=== PATIENT | female | born 1975 ===

== ENCOUNTER 2020-10-13 08:42 | Outpatient (REF) | payer OTHER, SELFPAY ==
[2020-10-13 09:41] LABS: Hematocrit 40.8 % (37-47); Hemoglobin 13.3 g/dl (12.0-16.0); Mean Corpuscular HGB Conc 32.6 g/dl (31.0-35.0); Mean Corpuscular Hemoglobin 29.4 pg (27.0-33.0); Mean Corpuscular Volume 90.3 fL (80-98); Mean Platelet Volume 9.1 fL (9.4-12.3); Platelet Count 442 X10*3/uL (160-400); Red Blood Count 4.52 X10*6/uL (4.20-5.50); Red Cell Distribution Width 13.5 % (11.0-16.0); White Blood Count 8.4 X10*3/uL (4.8-10.8)
[2020-10-13 10:13] LABS: Alanine Aminotransferase 15 U/L (0-31); Albumin Level 4.7 g/dL (3.5-5.0); Alkaline Phosphatase 64 U/L (39-117); Anion Gap 13 (12-20); Aspartate Amino Transferase 16 U/L (5-31); Bilirubin Direct 0.3 mg/dL (0.0-0.5); Bilirubin Total 0.8 mg/dL (0.0-1.0); Blood Urea Nitrogen 11 mg/dL (9-16); Calcium 9.6 mg/dL (8.4-10.2); Carbon Dioxide 25 mmol/L (22-29); Chloride 106 mmol/L (96-108); Estimated Glomerular Filt Rate > 60; Glucose Random 96 mg/dL (60-115); Potassium 4.7 mmol/L (3.3-5.1); Sodium 139 mmol/L (135-145); Total Protein 7.5 g/dL (6.5-8.0)
[2020-10-13 10:31] LABS: HIV AB/AG Nonreactive (Nonreactive); HIV Num 1 0.05 S/CO (0.00-0.99)
[2020-10-13 10:32] LABS: Erythrocyte Sedimentation Rate 4 MM/HR (0-20)
[2020-10-13 10:34] LABS: Syphilis Screen Nonreactive (Nonreactive); Thyroid Stimulating Hormone 1.22 uIU/mL (0.32-4.0)
[2020-10-14 09:11] LABS: Lyme Abs Screen <0.90 index
[2020-10-14 22:21] LABS: Anti Nuclear Antibody Screen POSITIVE (NEGATIVE)
== END 2020-10-13 08:43 | disposition home or self-care (01) ==
LOC: HO.LAB 08:42
PROVIDERS: PCP Internal Medicine; Visit Provider Psychiatry & Neurology Neurology
DX: Z01.84 Encounter for antibody response examination (principal); Z11.4 Encounter for screening for human immunodeficiency virus [HIV]; G43.909 Migraine, unspecified, not intractable, without status migrainosus; R63.4 Abnormal weight loss
CPT/HCPCS: 36415; 80048; 80076; 84443; 85027; 85652; 86038; 86039; 86618; 86780; 87389

== ENCOUNTER 2020-10-29 08:28 | Outpatient (REF) | payer OTHER, SELFPAY ==
[2020-10-30 11:32] LABS: Complement C3 95 mg/dL (83-193)
[2020-10-30 13:37] LABS: Anti DNA DS Antibody 1 IU/mL
[2020-10-30 16:47] LABS: IgA 146 mg/dL (47-310); IgG 1093 mg/dL (600-1640); IgM 59 mg/dL (50-300)
[2020-10-30 23:12] LABS: Prot Elec - Albumin 4.5 g/dL (3.8-4.8); Prot Elec - Alpha1 0.3 g/dL (0.2-0.3); Prot Elec - Alpha2 0.6 g/dL (0.5-0.9); Prot Elec - Beta 1 0.5 g/dL (0.4-0.6); Prot Elec - Beta 2 0.3 g/dL (0.2-0.5); Prot Elec - Total Protein 7.3 g/dL (6.1-8.1)
[2020-11-05 05:16] LABS: Cryoglobulin, Qual Negative (Negative)
== END 2020-10-29 08:29 | disposition home or self-care (01) ==
LOC: HO.LAB 08:28
PROVIDERS: PCP Internal Medicine; Visit Provider Psychiatry & Neurology Neurology
DX: R76.8 Other specified abnormal immunological findings in serum (principal)
CPT/HCPCS: 36415; 82595; 82784; 84155; 84165; 86160; 86225; 86334

== ENCOUNTER → 2021-07-21 08:08 | Outpatient (BNVA) | payer SELFPAY | PROVIDERS: PCP Internal Medicine; Visit Provider Internal Medicine | DX: Z02.79 Encounter for issue of other medical certificate (principal) ==

== ENCOUNTER 2021-09-14 03:33 | Emergency (ER) | payer OTHER, SELFPAY ==
[2021-09-14 03:53] VITALS: BP 146/94; PULSE 71; RESP 20; TEMP 36.7; O2SAT 100; BMI 24.9
--- NOTE | 2021-09-14 04:34 | ED_ITS ---
HPI - Back Pain/Injury General Chief Complaint: Back Pain/Injury Stated Complaint: neck pain, lower back pain Time Seen by Provider: 09/14/21 03:43 Source: patient Mode of arrival: ambulatory Limitations: no limitations History of Present Illness HPI Narrative: Patient comes to emergency room complaining of chronic back pain, and right- sided neck pain and back pain for 3 days. 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 Patient states that she has trouble turning her head towards the right due to pain, muscle spasms on the right side of the neck. Patient denies fever chills. Related Data Previous Rx's Medication Instructions Recorded cyclobenzaprine 10 mg tablet 10 mg PO TID PRN #10 tab 09/14/21 Allergies Allergy/AdvReac Type Severity Reaction Status Date / Time No Known Allergies Allergy Verified 09/14/21 03:53 Review of Systems Review of Systems: Constitutional : No Weight loss, No Fever, No Chills, No Night Sweats, No Fatigue, No Malaise ENT/Mouth : No Hearing loss, No Ear Pain, No Nasal Congestion, No Sinus Pain, No Hoarseness, No sore throat, No Rhinorrhea, No Swallowing Difficulty Eyes: No Eye Pain, No Swelling, No Redness, No Foreign Body, No Discharge, No Vision Changes Cardiovascular : No Chest Pain, No SOB, No Dyspnea on Exertion, No Orthopnea, No Edema, No Palpitations Respiratory : No Cough, No Sputum, No Wheezing, No Smoke Exposure, No Dyspnea Gastrointestinal : No Nausea, No Vomiting, No Diarrhea, No Constipation, No abdominal Pain, No Hematochezia, No Melena Genitourinary : no irregular bleeding, No Dysuria, No Urinary Frequency, No Hematuria, No Urinary Incontinence, No Urgency, No Flank Pain, No Urinary Flow Changes, No Hesitancy Musculoskeletal : Complaining of right-sided neck pain, difficulty rotating her head towards the right Skin : No Skin Lesions, No rash Neuro : No Weakness, No Numbness, No Paresthesias, No Loss of Consciousness, No Dizziness, No Headache Psych : No Anxiety/Panic, No Depression, No SI/HI/AH/VH, No Social Issues, Heme/Lymph: No Bruising, No Bleeding,No Lymphadenopathy Endocrine : No Polyuria, No Polydipsia, No Temperature Intolerance PMFSH Social History Social History Advance Directives: No Advance Directives Information Provided: Yes Patient : No Physical Exam Vital Signs: Vital Signs: Last Vital Signs Temp 98.0 F 09/14/21 03:53 Pulse 71 09/14/21 03:53 Resp 20 09/14/21 03:53 BP 146/94 H 09/14/21 03:53 Pulse Ox 100 09/14/21 03:53 BMI result Body Mass Index 24.9 Const: Other: Appearance: Alert. Oriented X3. No acute distress. Eyes: Pupils equal, round and reactive to light. ENT: Pharynx normal. Neck: Palpable spasms over the trapezius muscle on the right side, patient is able to flex and extend the head with normal range of motion, no stiffness CVS: Normal heart rate and rhythm. Pulses normal. Normal S1 and S2 Respiratory: No respiratory distress. Breath sounds normal. No Wheezing. No rales Abdomen: Soft and nontender. No rigidity. No distention. : Denies urinary retention Skin: Skin warm and dry. Normal skin color. Normal skin turgor. Extremities: No lower extremity edema. No lower extremity edema. No Lacerations. No Rash Neuro: Oriented X 3. No motor deficit. No sensory deficit. Moving all extermities. No slurred speech. Course Course Course Narrative: Patient likely has musculoskeletal pain over the trapezius muscle. Patient has not had fever chills, meningitis not suspected at all. 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 If the muscle spasms are not approved, patient would benefit from physical therapy Discharge Plan Discharge Clinical Impression: Muscle spasm Patient Disposition: Home, Self-Care Instructions: Spasmodic Torticollis (ED), Muscle Spasm (ED) Additional Instructions: Please follow-up with your primary care physician tomorrow. If you have any worsening or new symptoms, please return to the emergency room or call 911 Prescriptions: New cyclobenzaprine 10 mg tablet 10 mg PO TID PRN (Reason: muscle spasm) Qty: 10 0RF Rx Instructions: Do not use this medication before driving or using machinery Stand Alone Forms: Work/School Release
[2021-09-14] MEDS: Ketorolac Tromethamine 30 MG/ML VIAL 60 MG IM (04:48)
== END 2021-09-14 05:00 | disposition home or self-care (01) ==
PROVIDERS: Emergency Provider Emergency Medicine; PCP Internal Medicine
DX: M62.838 Other muscle spasm (principal); M54.2 Cervicalgia
CPT/HCPCS: 96372; 99283; 99284; J1885

== ENCOUNTER → 2022-07-08 10:49 | Outpatient (BNVA) | payer SELFPAY | PROVIDERS: PCP Internal Medicine; Visit Provider Internal Medicine | DX: Z13.89 Encounter for screening for other disorder (principal) ==

== ENCOUNTER → 2022-07-22 12:49 | Outpatient (BNVA) | payer SELFPAY | PROVIDERS: PCP Internal Medicine; Visit Provider Internal Medicine | DX: Z02.79 Encounter for issue of other medical certificate (principal) ==

== ENCOUNTER 2022-10-23 00:35 | Emergency (ER) | payer OTHER, SELFPAY ==
--- NOTE | ~2022-10-23 | XR_ITS ---
EXAMINATION: XR CHEST CLINICAL INFORMATION: Chest tightness. COMPARISON: None available. TECHNIQUE: Frontal view of the chest was obtained. FINDINGS: No significant abnormality is noted involving the heart, lungs, mediastinum, bony thorax or soft tissues. XR/XR chest 1V IMPRESSION: Unremarkable examination.
[2022-10-23 00:36] VITALS: BP 136/83; PULSE 75; RESP 18; TEMP 36.4; O2SAT 98; BMI 27.4
--- NOTE | 2022-10-23 00:39 | ECG_ITS ---
Test Reason : CHEST TIGHTNESS Blood Pressure : / mmHG Vent. Rate : 071 BPM Atrial Rate : 071 BPM P-R Int : 132 ms QRS Dur : 084 ms QT Int : 412 ms P-R-T Axes : 059 066 041 degrees QTc Int : 447 ms Normal sinus rhythm Normal ECG No previous ECGs available Referred By: Generic ED Physician Electronically Signed By:Luisito Rabago
[2022-10-23 01:07] LABS: MANUAL DIFF FLAG NO
[2022-10-23 01:13] LABS: Basophils Absolute Auto 0.1 X10*3/uL (0.0-0.2); Basophils Percent Auto 0.9 % (0-2); Eosinophils Absolute Auto 0.7 X10*3/uL (0.0-0.4); Hematocrit 38.1 % (37.0-47.0); Hemoglobin 12.6 g/dl (12.0-16.0); Imm Gran Abs Auto 0.05 X10*3/uL (0.00-0.03); Imm Gran Pct Auto 0.4 % (0.0-0.4); Lymphocytes Absolute Auto 2.7 X10*3/uL (1.2-4.9); Lymphocytes Percent Auto 21.9 % (20-40); Mean Corpuscular HGB Conc 33.1 g/dl (31.0-35.0); Mean Corpuscular Hemoglobin 29.5 pg (27.0-33.0); Mean Corpuscular Volume 89.2 fL (80.0-98.0); Mean Platelet Volume 9.1 fL (9.4-12.3); Monocytes Absolute Auto 0.9 X10*3/uL (0.1-1.2); Monocytes Percent Auto 7.1 % (2-11); Neutrophils Absolute Auto 7.8 x10*3/uL (2.0-8.3); Neutrophils Percent Auto 63.7 % (45-73); Platelet Count 437 X10*3/uL (160-400); Red Blood Count 4.27 X10*6/uL (4.20-5.50); Red Cell Distribution Width 13.2 % (11.0-16.0); White Blood Count 12.2 X10*3/uL (4.8-10.8)
[2022-10-23 01:25] LABS: Anion Gap 12 (12-20); Blood Urea Nitrogen 16 mg/dL (9-16); Calcium 8.9 mg/dL (8.4-10.2); Carbon Dioxide 22 mmol/L (22-29); Chloride 110 mmol/L (96-108); Creatinine Clr Calc Pharmacy 96.3; Estimated Glomerular Filt Rate > 60; Glucose Random 115 mg/dL (60-115); Potassium 4.2 mmol/L (3.3-5.1); Sodium 140 mmol/L (135-145)
[2022-10-23 01:33] LABS: Troponin-I High Sensitivity < 2.7 ng/L (<3.5-17.0)
[2022-10-23 02:47] VITALS: BP 128/79; PULSE 71; RESP 20; TEMP 36.5; O2SAT 96
--- NOTE | 2022-10-23 03:23 | ED_ITS ---
HPI - Chest Pain General Chief Complaint: Chest Pain Stated Complaint: Chest pain/left side arm hurts Time Seen by Provider: 10/23/22 01:34 Source: patient Mode of arrival: ambulatory History of Present Illness HPI narrative: 47-year-old female who 2 weeks ago had COVID-19 and felt like she was getting better and then recently developed worsening nasal congestion with cough, she denies any history of asthma and reports that she began to experience some difficulty with breathing earlier this evening became anxious and then began experiencing pain into her left shoulder. She otherwise denies any recent fever, chills, GI or symptoms. Related Data Previous Rx's Medication Instructions Recorded cyclobenzaprine 10 mg tablet 10 mg PO TID PRN muscle spasm #10 09/14/21 tabs azithromycin 250 mg tablet 250 mg PO DAILY 4 days #4 tabs 10/23/22 Allergies Allergy/AdvReac Type Severity Reaction Status Date / Time No Known Allergies Allergy Verified 09/14/21 03:53 Review of Systems Review of Systems: Pertinent positives and negatives as stated in HPI PMFSH Past Medical History Source: nursing notes reviewed Social History Social History Alcohol intake: never Smoked in Last 30 Days: No Use of substances other than those prescribed or required for medical reasons: No Advance Directives: No Advance Directives Information Provided: Yes Physical Exam Vital Signs: Vital Signs: Last Vital Signs Temp 97.7 F 10/23/22 02:47 Pulse 71 10/23/22 02:47 Resp 20 10/23/22 02:47 BP 128/79 10/23/22 02:47 Pulse Ox 96 10/23/22 02:47 O2 Del Method Room Air 10/23/22 02:47 BMI result Body Mass Index 27.4 VITAL SIGNS: Reviewed. GENERAL: Well developed, well nourished, in no acute distress. HEAD: Normocephalic/atraumatic EYES: PERRLA, EOMI EARS: Ext canals without abnormality, TMs non-bulging and non-erythematous NOSE: Nasal congestion OROPHARYNX: no oral lesions noted, posterior pharynx clear and non-erythematous without noted tonsillar enlargement/erythema/exudates NECK: Supple, no adenopathy LUNGS: Normal breath sounds. No adventitious sounds or accessory muscle use. SpO2<96> CARDIOVASCULAR: Regular rate and rhythm without noted murmurs ABDOMEN: Soft, non-tender, non-distended with bowel sounds. MUSCULOSKELETAL: No tenderness, deformities, or effusions noted on gross inspection. EXTREMITIES: No cyanosis, clubbing or edema. SKIN: Inspection of the skin reveals no rashes NEUROLOGIC: Alert and oriented x 4. Strength and sensation to light touch were grossly intact x 4. Medical Decision Making Medical Decision Making MDM Narrative: 47-year-old female with atypical chest pain and recent viral illness that may be contributing to her underlying discomfort in addition to a component of anxiety. Reviewed all investigations and have noted a reactive leukocytosis in addition to an eosinophilia, patient is not febrile/tachypneic/hypoxic and my review and interpretation of the chest x-ray is in agreement with radiology's impression. Given patient's symptoms and despite she has no fever, will treat with a course of azithromycin and instructed to follow-up with her primary care doctor. Differential Diagnosis Please see the discussion above Lab Data Please see the discussion above 10/23/22 01:00 10/23/22 01:00 Labs: Lab Results 10/23/22 10/23/22 10/23/22 Range/Units 01:00 01:00 01:00 WBC 12.2 H (4.8-10.8) X10*3/uL RBC 4.27 (4.20-5.50) X10*6/uL Hgb 12.6 (12.0-16.0) g/dl Hct 38.1 (37.0-47.0) % MCV 89.2 (80.0-98.0) fL MCH 29.5 (27.0-33.0) pg MCHC 33.1 (31.0-35.0) g/dl RDW 13.2 (11.0-16.0) % Plt Count 437 H (160-400) X10*3/uL MPV 9.1 L (9.4-12.3) fL Immature Gran % (Auto) 0.4 (0.0-0.4) % Neut % (Auto) 63.7 (45-73) % Lymph % (Auto) 21.9 (20-40) % [place] % (Auto) 7.1 (2-11) % Eos % (Auto) 6.0 H (0-4) % Baso % (Auto) 0.9 (0-2) % Lymph # (Auto) 2.7 (1.2-4.9) X10*3/uL [place] # (Auto) 0.9 (0.1-1.2) X10*3/uL Eos # (Auto) 0.7 H (0.0-0.4) X10*3/uL Baso # (Auto) 0.1 (0.0-0.2) X10*3/uL Abs Immat Gran (auto) 0.05 H (0.00-0.03) X10*3/uL Absolute Neuts (auto) 7.8 (2.0-8.3) x10*3/uL Absolute Nucleated RBC 0.000 (0.0-0.012) X10*3/uL Nucleated RBC % (auto) 0.0 (0.0-0.2) /100WBC Sodium 140 (135-145) mmol/L Potassium 4.2 (3.3-5.1) mmol/L Chloride 110 H (96-108) mmol/L Carbon Dioxide 22 (22-29) mmol/L Anion Gap 12 (12-20) BUN 16 (9-16) mg/dL Creatinine 0.72 (0.5-1.4) mg/dL Estim Creat Clear Calc 96.3 Estimated GFR > 60 Random Glucose 115 (60-115) mg/dL Calcium 8.9 D (8.4-10.2) mg/dL Troponin I High Sens < 2.7 (<3.5-17.0) ng/L Independent Interpretation I performed an independent interpretation of an: EKG Interpretation: Normal sinus rhythm, HR-71, no STEMI, FL/QRS/QTC is within normal limits. Radiology Impression Radiologist Impression: My interpretation is in agreement with radiology's impression of the imaging studies. External Record Review External record reviewed: Prior outpatient labs Discharge Plan Discharge Clinical Impression: Atypical chest pain, Pneumonia Patient Disposition: Home, Self-Care Instructions: Pneumonia (ED) Additional Instructions: 1. Complete the entire course of antibiotics as prescribed. 2. Recommend that she use [id number] Tylenol/ibuprofen as needed for additional pain control. Prescriptions: New azithromycin 250 mg tablet 250 mg PO DAILY 4 Days Qty: 4 0RF Rx Instructions: start on day 2 of therapy No Action cyclobenzaprine 10 mg tablet 10 mg PO TID PRN (Reason: muscle spasm) Qty: 10 0RF Rx Instructions: Do not use this medication before driving or using machinery Referrals: Eliza Jolly MD [Primary Care Provider] -
[2022-10-23] MEDS: Azithromycin 500 MG TABLET PO (03:55)
[2022-10-23] MEDS: Ibuprofen 400 MG TABLET PO (03:55)
[2022-10-23] MEDS: Acetaminophen 325 MG TABLET 975 MG PO (03:55)
[2022-10-23 04:18] LABS: COVID-19 Test Positive (Negative); IDNOW Serial# 08D9AD1C; IDNOW Serial# BCCEAD1C; Influenza A Negative (Negative); Influenza B2 Negative (Negative)
== END 2022-10-23 04:00 | disposition home or self-care (01) ==
PROVIDERS: Emergency Provider Student in an Organized Health Care Education/Training Program; PCP Internal Medicine
DX: U07.1 COVID-19 (principal); J12.82 Pneumonia due to coronavirus disease 2019; R07.89 Other chest pain
CPT/HCPCS: 36415; 71045; 80048; 84484; 85025; 87502; 87635; 93005; 99283; 99285

== ENCOUNTER → 2023-07-15 10:14 | Outpatient (BNVA) | payer SELFPAY | PROVIDERS: PCP Internal Medicine; Visit Provider Physician Assistant | DX: Z02.79 Encounter for issue of other medical certificate (principal) ==

== ENCOUNTER 2023-08-25 11:29 | Emergency (ER) | payer OTHER, SELFPAY ==
[2023-08-25 11:40] VITALS: BP 136/66; PULSE 93; RESP 18; TEMP 36.1; O2SAT 96; BMI 30.8
--- NOTE | 2023-08-25 11:40 | ED_ITS ---
HPI - Animal Bite General Chief Complaint: Animal Bite Stated Complaint: bit by a stray cat 08/24 Time Seen by Provider: 08/25/23 12:17 Source: patient Mode of arrival: ambulatory Limitations: no limitations History of Present Illness HPI narrative: 48-year-old female presents for evaluation of cat bite to right hand by a random strike cat which her daughter brought home. She reports she has multiple bites and scratches to her right hand. Unknown rabies status for CT. Up-to-date on tetanus shot. Denies fevers, chills, chest pain, shortness of breath, numbness, tingling, cp, sob Related Data Previous Rx's Medication Instructions Recorded cyclobenzaprine 10 mg tablet 10 mg PO TID PRN muscle spasm #10 09/14/21 tabs azithromycin 250 mg tablet 250 mg PO DAILY 4 days #4 tabs 10/23/22 amoxicillin 875 mg-potassium 1 tab PO BID 7 days #14 tabs 08/25/23 clavulanate 125 mg tablet Allergies Allergy/AdvReac Type Severity Reaction Status Date / Time No Known Allergies Allergy Verified 08/25/23 11:40 Review of Systems Review of Systems: Yes all other systems are reviewed and are negative [facility] Past Medical History Attestation statement: The following information was validated with the patient. Source: old records reviewed and nursing notes reviewed Social History Social History Alcohol intake: never Physical Exam ED Vital Signs: Vital Signs - 24 hr 08/25/23 11:40 Temperature 96.9 F Pulse Rate 93 Respiratory Rate 18 Blood Pressure 136/66 Pulse Oximetry 96 Oxygen Delivery Method Room Air BMI result Body Mass Index 30.8 vss Appearance: Alert.? Oriented X3.? No acute distress.? Head: Normocephalic, atraumatic, no step-offs or deformities Eyes: Pupils equal, round and reactive to light.? ENT: Pharynx normal.? Neck: Normal inspection.? Neck supple.? CVS: Normal heart rate and rhythm.? Pulses normal.? Respiratory: No respiratory distress.? Breath sounds normal.? Abdomen: Soft and nontender.? Skin: Skin warm and dry.? Normal skin color.? Normal skin turgor.?+ abrasions in cat bite to right hand. No overlying erythema, warmth, drainage. Full range of motion to bilateral wrists, fingers. Extremities: No lower extremity edema.? No calf ttp. 5/5 strength to bilateral upper and lower extremities Neuro: Oriented X 3.? No motor deficit.? No sensory deficit. CN 2-12 intact Course Course Course Narrative: RME: Bitten by a stray cat last night in right hand. No erythema or purulent discharge. Needs Rabies shot Medical Decision Making Medical Decision Making MDM Narrative: 48-year-old female presents with cat bite to right hand. Unclear vaccination status of Cat Physical exam significant for abrasions in cat bite to right hand. No overlying erythema, warmth, drainage. Full range of motion to bilateral wrists, fingers. Concerns for cat bite/scratch. No signs of septic joint, cellulitis at this time. No signs of neurovascular compromise or threat to limb. UTD on boostrix. no need for repeat . Patient to receive immunoglobulin and rabies vaccine. She will be given she had a paper on when to return to short stay to receive the remaining doses. Patient verbalizes understanding of this Educated patient on diagnosis and treatment plan, answered all question, patient verbalizes understanding. At this time patient will be discharged home, advised to return with new or worsening symptoms. Educated on worrisome signs and symptoms and when to return. At this time I feel comfortable discharge home. Differential Diagnosis Differential Diagnoses: The differential diagnosis associated with the presentation includes Concerns for cat bite/scratch. No signs of septic joint, cellulitis at this time. No signs of neurovascular compromise or threat to limb. Admission/Observation Consideration of admission/observation: Escalation of care including admission/observation considered no indication External Record Review External record reviewed: Inpatient record, Office record, Outpatient record, Prior outpatient labs, Prior outpatient radiology, Primary care record and Outside ED record Critical Care Time Critical Care Time Critical Care Time: No Discharge Plan Discharge Clinical Impression: Cat bite Patient Disposition: Home, Self-Care Instructions: Animal Bite (ED), Rabies (ED) Additional Instructions: Take your medications as prescribed. If you were prescribed antibiotics today, it is important that you take your medication to their entirety, do not skip any doses, do not finish them early. Follow-up with your primary care provider this week. Return to the emergency department with new or worsening symptoms. Such as fevers, chills, chest pain, shortness of breath, nausea, vomiting, dizziness, headache, vision changes, lethargy In case of emergency call 911 Return with any signs of infection redness, swelling, drainage from the site. Prescriptions: New amoxicillin-pot clavulanate 875-125 mg tablet 1 tab PO BID 7 Days Qty: 14 0RF No Action cyclobenzaprine 10 mg tablet 10 mg PO TID PRN (Reason: muscle spasm) Qty: 10 0RF Rx Instructions: Do not use this medication before driving or using machinery azithromycin 250 mg tablet 250 mg PO DAILY 4 Days Qty: 4 0RF Rx Instructions: start on day 2 of therapy Referrals: Eliza Jolly MD [Primary Care Provider] - 2 days
[2023-08-25 12:57] VITALS: BP 162/91; PULSE 91; RESP 16; TEMP 36.6; O2SAT 100
[2023-08-25 14:00] VITALS: BP 130/70; PULSE 77; RESP 16; TEMP 36.6; O2SAT 98
[2023-08-25] MEDS: Rabies Vaccine, Human Diploid (Imovax) 1 ML VIAL IM (14:40)
[2023-08-25] MEDS: Rabies Immune Globulin/PF 900 UNIT/3 ML VIAL 1630 UNIT IM (14:44)
== END 2023-08-25 15:04 | disposition home or self-care (01) ==
PROVIDERS: Emergency Provider Emergency Medicine; PCP Internal Medicine
DX: S61.451A Open bite of right hand, initial encounter (principal); W55.01XA Bitten by cat, initial encounter; Y93.9 Activity, unspecified; Y92.019 Unspecified place in single-family (private) house as the place of occurrence of the external cause; Y99.9 Unspecified external cause status; Z20.3 Contact with and (suspected) exposure to rabies
CPT/HCPCS: 90375; 90471; 90675; 96372; 99284

== ENCOUNTER 2023-08-28 09:47 | Outpatient (REF) | payer OTHER, SELFPAY | END 2023-08-28 09:48 | disposition home or self-care (01) | LOC: HO.MDS 09:47 | PROVIDERS: Visit Provider Emergency Medicine | DX: Z20.3 Contact with and (suspected) exposure to rabies (principal); T14.8XXD Other injury of unspecified body region, subsequent encounter; W55.01XD Bitten by cat, subsequent encounter | CPT/HCPCS: 90471; 90675 ==

== ENCOUNTER 2023-09-01 10:24 | Outpatient (REF) | payer OTHER, SELFPAY | END 2023-09-01 10:25 | disposition home or self-care (01) | LOC: HO.MDS 10:24 | PROVIDERS: Visit Provider Emergency Medicine | DX: Z20.3 Contact with and (suspected) exposure to rabies (principal); T14.8XXD Other injury of unspecified body region, subsequent encounter; W55.01XD Bitten by cat, subsequent encounter | CPT/HCPCS: 90471; 90675 ==

== ENCOUNTER 2023-09-09 08:31 | Outpatient (REF) | payer OTHER, SELFPAY | END 2023-09-09 08:32 | disposition home or self-care (01) | LOC: HO.MDS 08:31 | DX: Z20.3 Contact with and (suspected) exposure to rabies (principal); T14.8XXD Other injury of unspecified body region, subsequent encounter; W55.01XD Bitten by cat, subsequent encounter | CPT/HCPCS: 90471; 90675 ==

== ENCOUNTER 2024-01-29 02:02 | Emergency (ER) | payer OTHER, SELFPAY ==
--- NOTE | 2024-01-29 | ECG_ITS ---
Test Reason : chest pain Blood Pressure : / mmHG Vent. Rate : 080 BPM Atrial Rate : 080 BPM P-R Int : 134 ms QRS Dur : 074 ms QT Int : 398 ms P-R-T Axes : 056 047 019 degrees QTc Int : 459 ms Normal sinus rhythm Normal ECG When compared with ECG of 23-OCT-2022 00:47, No significant change was found Referred By: Generic ED Physician Electronically Signed By:Luisito Rabago
[2024-01-29 02:15] VITALS: BP 143/80; PULSE 80; RESP 16; TEMP 36.3; O2SAT 97; BMI 29.2
[2024-01-29 02:21] LABS: MANUAL DIFF FLAG NO
[2024-01-29 02:23] LABS: Basophils Absolute Auto 0.1 X10*3/uL (0.0-0.2); Basophils Percent Auto 0.7 % (0-2); Eosinophils Absolute Auto 0.5 X10*3/uL (0.0-0.4); Hematocrit 34.5 % (37.0-47.0); Hemoglobin 11.8 g/dl (12.0-16.0); Imm Gran Abs Auto 0.03 X10*3/uL (0.00-0.03); Imm Gran Pct Auto 0.3 % (0.0-0.4); Lymphocytes Absolute Auto 2.8 X10*3/uL (1.2-4.9); Lymphocytes Percent Auto 26.5 % (20-40); Mean Corpuscular HGB Conc 34.2 g/dl (31.0-35.0); Mean Corpuscular Hemoglobin 29.9 pg (27.0-33.0); Mean Corpuscular Volume 87.3 fL (80.0-98.0); Mean Platelet Volume 9.1 fL (9.4-12.3); Monocytes Percent Auto 9.7 % (2-11); Neutrophils Absolute Auto 6.2 x10*3/uL (2.0-8.3); Neutrophils Percent Auto 57.8 % (45-73); Platelet Count 363 X10*3/uL (160-400); Red Blood Count 3.95 X10*6/uL (4.20-5.50); Red Cell Distribution Width 12.9 % (11.0-16.0); White Blood Count 10.7 X10*3/uL (4.8-10.8)
[2024-01-29 02:53] LABS: Alanine Aminotransferase 19 U/L (0-31); Alkaline Phosphatase 66 U/L (39-117); Anion Gap 13 (12-20); Aspartate Amino Transferase 16 U/L (5-31); Bilirubin Direct 0.2 mg/dL (0.0-0.5); Bilirubin Total 0.6 mg/dL (0.0-1.0); Blood Urea Nitrogen 12 mg/dL (9-16); Carbon Dioxide 19 mmol/L (22-29); Chloride 110 mmol/L (96-108); Creatinine Clr Calc Pharmacy 91.7; Estimated Glomerular Filt Rate > 60; Glucose Random 95 mg/dL (60-115); Potassium 3.3 mmol/L (3.3-5.1); Sodium 139 mmol/L (135-145); Total Protein 6.4 g/dL (6.5-8.0)
[2024-01-29 03:07] LABS: Troponin-I High Sensitivity < 2.7 ng/L (<3.5-17.0)
[2024-01-29 04:07] VITALS: BP 129/70; PULSE 75; RESP 16; TEMP 37.2; O2SAT 98
--- NOTE | 2024-01-29 04:44 | ED_ITS ---
HPI - Chest Pain General Chief Complaint: Chest Pain Stated Complaint: chest pain, left arm pain Time Seen by Provider: 01/29/24 04:32 Source: patient Mode of arrival: ambulatory Limitations: no limitations History of Present Illness ED Provider: Dr. Joy Azevedo HPI narrative: Patient comes to the emergency room complaining of intermittent chest pain that started approximately 24 hours ago. Patient states that throughout the day she had a bit of chest discomfort radiating towards the left arm intermittently. Patient states that she has had this happened multiple times usually ending IV panic attacks. Patient states that this time she preferred to have herself checked. At this time, patient is asymptomatic. Patient states that she got scared and took 1000 mg of aspirin, 12 tablets of 81 mg as per recommendation of the aspirin bottle. Patient denies taking any other medications. Related Data Previous Rx's ?Medication ?Instructions ?Recorded cyclobenzaprine 10 mg tablet 10 mg PO TID PRN muscle spasm #10 09/14/21 tabs azithromycin 250 mg tablet 250 mg PO DAILY 4 days #4 tabs 10/23/22 amoxicillin 875 mg-potassium 1 tab PO BID 7 days #14 tabs 08/25/23 clavulanate 125 mg tablet Allergies Allergy/AdvReac Type Severity Reaction Status Date / Time No Known Allergies Allergy Verified 01/29/24 02:19 Review of Systems 2 Review of Systems: Constitutional : No Weight loss, No Fever, No Chills, No Night Sweats, No Fatigue, No Malaise ENT/Mouth : No Hearing loss, No Ear Pain, No Nasal Congestion, No Sinus Pain, No Hoarseness, No sore throat, No Rhinorrhea, No Swallowing Difficulty Eyes: No Eye Pain, No Swelling, No Redness, No Foreign Body, No Discharge, No Vision Changes Cardiovascular : Complaining of intermittent Chest Pain, asymptomatic at this time, No SOB, No Dyspnea on Exertion, No Orthopnea, No Edema, No Palpitations Respiratory : No Cough, No Sputum, No Wheezing, No Smoke Exposure, No Dyspnea Gastrointestinal : No Nausea, No Vomiting, No Diarrhea, No Constipation, No abdominal Pain, No Hematochezia, No Melena Genitourinary : no irregular bleeding, No Dysuria, No Urinary Frequency, No Hematuria, No Urinary Incontinence, No Urgency, No Flank Pain, No Urinary Flow Changes, No Hesitancy Musculoskeletal : No joint pain, No Myalgias, No Joint Swelling Skin : No Skin Lesions, No rash Neuro : No Weakness, No Numbness, No Paresthesias, No Loss of Consciousness, No Dizziness, No Headache Psych : Complaining of anxiety and panic attacks, No Depression, No SI/HI/AH/VH, No Social Issues, Heme/Lymph: No Bruising, No Bleeding,No Lymphadenopathy Endocrine : No Polyuria, No Polydipsia, No Temperature Intolerance [facility] Social History Social History Alcohol intake: never Smoked in Last 30 Days: No Advance Directives: No Advance Directives Information Provided: No Do you have a plan to hurt others: No Plan Physical Exam 2 Vital Signs: Vital Signs: Last Vital Signs Temp 99.0 F 01/29/24 04:07 Pulse 75 01/29/24 04:07 Resp 16 01/29/24 04:07 BP 129/70 01/29/24 04:07 Pulse Ox 98 01/29/24 04:07 O2 Del Method Room Air 01/29/24 04:07 BMI result Body Mass Index 29.2 Const: Other: Appearance: Alert. Oriented X3. No acute distress. Eyes: Pupils equal, round and reactive to light. ENT: Pharynx normal. Neck: Normal inspection. Neck supple. No lymph nodes noted. No crepitus CVS: Normal heart rate and rhythm. Pulses normal. Normal S1 and S2 Respiratory: No respiratory distress. Breath sounds normal. No Wheezing. No rales Abdomen: Soft and nontender. No rigidity. No distention. Skin: Skin warm and dry. Normal skin color. Normal skin turgor. Extremities: No lower extremity edema. No Lacerations. No Rash Neuro: Oriented X 3. No motor deficit. No sensory deficit. Moving all extremities. No slurred speech. CN 2 through 12 grossly intact Psych: calm, cooperative, normal affect Medical Decision Making Medical Decision Making MDM Narrative: -my interpretation of EKG: Normal sinus rhythm, heart rate 80, no ST segment depression or elevation, no T-wave inversion, QTC 459 -vitals stable, blood pressure 129/70, heart rate 75 -my interpretation of labs: no obvious abnormality in hematology or chemistry, troponin number 1 is negative -at this time patient is asymptomatic. -discussed with the patient that if she continues having chest pains, patient needs to follow-up with her primary care physician as she may need a stress test. -today, seems that the patient had a panic attack Differential Diagnosis Differential Diagnoses: The differential diagnosis associated with the presentation includes (ACS, panic attack, anxiety) Admission/Observation Consideration of admission/observation: Escalation of care including admission/observation considered (Given patient's symptoms and history, observation was considered) Lab Data MDM Lab Attestation statement: I reviewed the patient's lab results. 01/29/24 02:17 01/29/24 02:17 Labs: Lab Results 01/29/24 Range/Units 02:17 WBC 10.7 (4.8-10.8) X10*3/uL RBC 3.95 L (4.20-5.50) X10*6/uL Hgb 11.8 L (12.0-16.0) g/dl Hct 34.5 L (37.0-47.0) % MCV 87.3 (80.0-98.0) fL MCH 29.9 (27.0-33.0) pg MCHC 34.2 (31.0-35.0) g/dl RDW 12.9 (11.0-16.0) % Plt Count 363 (160-400) X10*3/uL MPV 9.1 L (9.4-12.3) fL Immature Gran % (Auto) 0.3 (0.0-0.4) % Neut % (Auto) 57.8 (45-73) % Lymph % (Auto) 26.5 (20-40) % [place] % (Auto) 9.7 (2-11) % Eos % (Auto) 5.0 H (0-4) % Baso % (Auto) 0.7 (0-2) % Lymph # (Auto) 2.8 (1.2-4.9) X10*3/uL [place] # (Auto) 1.0 (0.1-1.2) X10*3/uL Eos # (Auto) 0.5 H (0.0-0.4) X10*3/uL Baso # (Auto) 0.1 (0.0-0.2) X10*3/uL Abs Immat Gran (auto) 0.03 (0.00-0.03) X10*3/uL Absolute Neuts (auto) 6.2 (2.0-8.3) x10*3/uL Absolute Nucleated RBC 0.000 (0.0-0.012) X10*3/uL Nucleated RBC % (auto) 0.0 (0.0-0.2) /100WBC Sodium 139 (135-145) mmol/L Potassium 3.3 (3.3-5.1) mmol/L Chloride 110 H (96-108) mmol/L Carbon Dioxide 19 L (22-29) mmol/L Anion Gap 13 (12-20) BUN 12 (9-16) mg/dL Creatinine 0.77 (0.5-1.4) mg/dL Estim Creat Clear Calc 91.7 Estimated GFR > 60 Random Glucose 95 (60-115) mg/dL Calcium 9.0 (8.4-10.2) mg/dL Total Bilirubin 0.6 (0.0-1.0) mg/dL Direct Bilirubin 0.2 (0.0-0.5) mg/dL AST 16 (5-31) U/L ALT 19 (0-31) U/L Alkaline Phosphatase 66 (39-117) U/L Troponin I High Sens < 2.7 (<3.5-17.0) ng/L Total Protein 6.4 L (6.5-8.0) g/dL Albumin 4.0 (3.5-5.0) g/dL Independent Interpretation I performed an independent interpretation of an: EKG Radiology Impression Discussion of test interpretation with radiology: I have reviewed the radiologist's reading. Critical Care Time Critical Care Time Critical Care Time: Yes Total Critical Care Time: 45 Attestation: I have personally provided critical care time. Time includes review of lab data, radiology results, discussion with consultants, and monitoring for potential decompensation. Intervention performed as documented. Discharge Plan Discharge Clinical Impression: Atypical chest pain, Anxiety Patient Disposition: Home, Self-Care Instructions: Chest Pain (ED), Anxiety (ED) Additional Instructions: Please follow-up with your primary care physician tomorrow. If you have any worsening or new symptoms, please return to the emergency room or call 911 Prescriptions: No Action cyclobenzaprine 10 mg tablet 10 mg PO TID PRN (Reason: muscle spasm) Qty: 10 0RF Rx Instructions: Do not use this medication before driving or using machinery azithromycin 250 mg tablet 250 mg PO DAILY 4 Days Qty: 4 0RF Rx Instructions: start on day 2 of therapy amoxicillin-pot clavulanate 875-125 mg tablet 1 tab PO BID 7 Days Qty: 14 0RF Print Language: [place]
[2024-01-29 04:55] VITALS: BP 129/70; PULSE 75; RESP 16; TEMP 37.2; O2SAT 98
== END 2024-01-29 04:55 | disposition home or self-care (01) ==
PROVIDERS: Emergency Provider Emergency Medicine
DX: R07.89 Other chest pain (principal); F41.1 Generalized anxiety disorder; F43.0 Acute stress reaction; Z79.899 Other long term (current) drug therapy
CPT/HCPCS: 36415; 80048; 80076; 84484; 85025; 93005; 99284

== ENCOUNTER → 2024-01-29 02:02 | Outpatient (BNV) | payer OTHER, SELFPAY | PROVIDERS: Emergency Provider Emergency Medicine; Visit Provider Internal Medicine Cardiovascular Disease | DX: R07.9 Chest pain, unspecified (principal) | CPT/HCPCS: 93010 ==

== ENCOUNTER → 2024-07-16 08:57 | Outpatient (BNVA) | payer SELFPAY | PROVIDERS: Visit Provider Physician Assistant Medical | DX: Z02.79 Encounter for issue of other medical certificate (principal) ==

== ENCOUNTER 2024-12-11 04:15 | Emergency (ER) | payer OTHER, SELFPAY ==
--- NOTE | 2024-12-11 | ECG_ITS ---
Test Reason : CHEST PAIN/ SOB Blood Pressure : */* mmHG Vent. Rate : 89 BPM Atrial Rate : 89 BPM P-R Int : 124 ms QRS Dur : 72 ms QT Int : 370 ms P-R-T Axes : 66 75 47 degrees QTcB Int : 450 ms Normal sinus rhythm Normal ECG When compared with ECG of 29-Jan-2024 02:02, No significant change was found Referred By: Generic ED Physician Electronically Signed By: SARAH ALVARENGA MD
--- NOTE | ~2024-12-11 | XR_ITS ---
CLINICAL HISTORY: SOB 1 view chest x-ray Comparison: 10/23/2022 Findings: No consolidation or effusion. Normal size heart. No acute fracture. IMPRESSION: 1. No acute findings. This document has been electronically signed by: Xiang Frances MD on 12/11/2024 05:56:35
[2024-12-11 04:18] VITALS: BP 144/83; PULSE 94; RESP 26; TEMP 36.9; O2SAT 96; BMI 27.5
[2024-12-11 04:28] LABS: Basophils Absolute Auto 0.1 X10*3/uL (0.0-0.2); Basophils Percent Auto 0.9 % (0-2); Eosinophils Absolute Auto 0.7 X10*3/uL (0.0-0.4); Eosinophils Percent Auto 5.7 % (0-4); Hematocrit 37.5 % (37.0-47.0); Hemoglobin 12.6 g/dl (12.0-16.0); Imm Gran Abs Auto 0.02 X10*3/uL (0.00-0.03); Imm Gran Pct Auto 0.2 % (0.0-0.4); Lymphocytes Absolute Auto 1.5 X10*3/uL (1.2-4.9); MANUAL DIFF FLAG NO; Mean Corpuscular HGB Conc 33.6 g/dl (31.0-35.0); Mean Corpuscular Hemoglobin 27.5 pg (27.0-33.0); Mean Corpuscular Volume 81.7 fL (80.0-98.0); Mean Platelet Volume 8.8 fL (9.4-12.3); Monocytes Percent Auto 8.4 % (2-11); Neutrophils Absolute Auto 8.1 x10*3/uL (2.0-8.3); Neutrophils Percent Auto 71.8 % (45-73); Platelet Count 407 X10*3/uL (160-400); Red Blood Count 4.59 X10*6/uL (4.20-5.50); Red Cell Distribution Width 14.9 % (11.0-16.0); White Blood Count 11.3 X10*3/uL (4.8-10.8)
[2024-12-11] MEDS: Albuterol Sulfate 2.5 MG, Albuterol Sulfate (0.083%) 2.5 MG 5 MG INHALE (04:29)
[2024-12-11 04:31] VITALS: PULSE 87; RESP 24; O2SAT 98
--- NOTE | 2024-12-11 04:34 | ED_ITS ---
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 got worse for last 3 days ago had sore throat not anymore no fever no chills no other family member sick denies any chest pain cough is mostly dry occasional with mucoid phlegm Related Data Previous Rx's ?Medication ?Instructions ?Recorded cyclobenzaprine 10 mg tablet 10 mg PO TID PRN muscle spasm #10 09/14/21 tabs azithromycin 250 mg tablet 250 mg PO DAILY 4 days #4 tabs 10/23/22 amoxicillin 875 mg-potassium 1 tab PO BID 7 days #14 tabs 08/25/23 clavulanate 125 mg tablet albuterol sulfate 90 mcg/actuation 2 puff inhalation Q6H PRN 12/11/24 aerosol inhaler shortness of breath or wheezing #8.5 grams benzonatate 200 mg capsule 200 mg PO TID PRN cough #20 caps 12/11/24 cefuroxime axetil 500 mg tablet 500 mg PO BID 7 days #14 tabs 12/11/24 prednisone 20 mg tablet 40 mg (2 x 20 mg) PO DAILY #10 tabs 12/11/24 Allergies Allergy/AdvReac Type Severity Reaction Status Date / Time No Known Allergies Allergy Verified 12/11/24 04:20 Review of Systems 2 Review of Systems: Yes all other systems are reviewed and are negative [facility] Social History Social History Alcohol intake: never Smoked in Last 30 Days: No Use of substances other than those prescribed or required for medical reasons: No Advance Directives: No Advance Directives Information Provided: Yes Patient : No Physical Exam 2 Vital Signs: Vital Signs: Last Vital Signs Temp 98.5 F 12/11/24 04:18 Pulse 93 12/11/24 04:51 Resp 17 12/11/24 04:51 BP 154/80 H 12/11/24 04:51 Pulse Ox 99 12/11/24 04:51 O2 Del Method Room Air 12/11/24 04:51 BMI result Body Mass Index 27.5 Appearance: Alert. Oriented X3. Frequent dry cough wheezing Eyes: No pallor or icterus ENT: Pharynx normal. Oral Mucosa moist Neck: Normal inspection. Neck supple. CVS: Normal heart rate and rhythm. Pulses normal. Respiratory: Mild respiratory distress. Equal air entry bilateral, bilateral prolonged expiration Abdomen: Soft and nontender. Bowel sounds are present, Skin: Skin warm and dry. Normal skin color. Normal skin turgor. Extremities: No lower extremity edema. No calf tenderness Neuro: Oriented X 3. No motor deficit. Medications Administered Discontinued Medications Generic Name Dose Route Start Last Admin Trade Name Freq PRN Reason Stop Dose Admin Albuterol Sulfate 2.5 mg/ 5 mg 12/11/24 04:26 12/11/24 04:29 Albuterol Sulfate 2.5 mg INHALE 12/11/24 04:27 5 mg ONCE ONE Administration Methylprednisolone Sodium Succinate 125 mg 12/11/24 04:38 12/11/24 04:50 Methylprednisolone Sod Succ 125 Mg Vial IVPUSH 12/11/24 04:39 125 mg ONCE ONE Administration Medical Decision Making Medical Decision Making [facility] Narrative: Patient has acute bronchitis chest x-ray negative for acute will give Ceftin antibiotics prednisone and inhaler Lab Data [facility] Lab Attestation statement: I reviewed the patient's lab results. 12/11/24 04:24 12/11/24 04:24 Labs: Lab Results 12/11/24 12/11/24 Range/Units 04:24 04:45 WBC 11.3 H (4.8-10.8) X10*3/uL RBC 4.59 (4.20-5.50) X10*6/uL Hgb 12.6 (12.0-16.0) g/dl Hct 37.5 (37.0-47.0) % MCV 81.7 (80.0-98.0) fL MCH 27.5 (27.0-33.0) pg MCHC 33.6 (31.0-35.0) g/dl RDW 14.9 (11.0-16.0) % Plt Count 407 H (160-400) X10*3/uL MPV 8.8 L (9.4-12.3) fL Immature Gran % (Auto) 0.2 (0.0-0.4) % Neut % (Auto) 71.8 (45-73) % Lymph % (Auto) 13.0 L (20-40) % [place] % (Auto) 8.4 (2-11) % Eos % (Auto) 5.7 H (0-4) % Baso % (Auto) 0.9 (0-2) % Lymph # (Auto) 1.5 (1.2-4.9) X10*3/uL [place] # (Auto) 1.0 (0.1-1.2) X10*3/uL Eos # (Auto) 0.7 H (0.0-0.4) X10*3/uL Baso # (Auto) 0.1 (0.0-0.2) X10*3/uL Abs Immat Gran (auto) 0.02 (0.00-0.03) X10*3/uL Absolute Neuts (auto) 8.1 (2.0-8.3) x10*3/uL Absolute Nucleated RBC 0.000 (0.0-0.012) X10*3/uL Nucleated RBC % (auto) 0.0 (0.0-0.2) /100WBC Sodium 137 (135-145) mmol/L Potassium 3.9 (3.3-5.1) mmol/L Chloride 109 H (96-108) mmol/L Carbon Dioxide 19 L (22-29) mmol/L Anion Gap 13 (12-20) BUN 15 (9-16) mg/dL Creatinine 0.86 (0.5-1.4) mg/dL Estim Creat Clear Calc 78.9 Estimated GFR > 60 Random Glucose 104 (60-115) mg/dL Calcium 8.8 (8.4-10.2) mg/dL Total Bilirubin 0.4 (0.0-1.0) mg/dL AST 24 (5-31) U/L ALT 29 (0-31) U/L Alkaline Phosphatase 77 (39-117) U/L Troponin I High Sens < 2.7 (<3.5-17.0) ng/L Total Protein 7.2 (6.5-8.0) g/dL Albumin 4.3 (3.5-5.0) g/dL Influenza Type A (PCR) NEGATIVE (Negative) Influenza Type B (PCR) NEGATIVE (Negative) RSV RNA Qual (PCR) NEGATIVE (Negative) SARS-CoV-2 RNA (RT-PCR) NEGATIVE (Negative) Independent Interpretation I performed an independent interpretation of an: Plain X-Ray Interpretation: No acute Radiology Impression Discussion of test interpretation with radiology: I have reviewed the radiologist's reading. Discharge Plan Discharge Clinical Impression: Acute bronchitis Patient Disposition: Home, Self-Care Instructions: Acute Bronchitis (ED) Additional Instructions: Take antibiotics prednisone inhaler as prescribed Follow with your PCP if not Prescriptions: New benzonatate 200 mg capsule 200 mg PO TID PRN (Reason: cough) Qty: 20 0RF prednisone 20 mg tablet 40 mg PO DAILY Qty: 10 0RF cefuroxime axetil 500 mg tablet 500 mg PO BID 7 Days Qty: 14 0RF albuterol sulfate 90 mcg/actuation HFA aerosol inhaler 2 puff inhalation Q6H PRN (Reason: shortness of breath or wheezing) Qty: 8.5 0RF No Action cyclobenzaprine 10 mg tablet 10 mg PO TID PRN (Reason: muscle spasm) Qty: 10 0RF Rx Instructions: Do not use this medication before driving or using machinery azithromycin 250 mg tablet 250 mg PO DAILY 4 Days Qty: 4 0RF Rx Instructions: start on day 2 of therapy amoxicillin-pot clavulanate 875-125 mg tablet 1 tab PO BID 7 Days Qty: 14 0RF Stand Alone Forms: Work/School Release Print Language: Polish
[2024-12-11 04:48] LABS: Troponin-I High Sensitivity < 2.7 ng/L (<3.5-17.0)
[2024-12-11 04:50] LABS: Alanine Aminotransferase 29 U/L (0-31); Albumin Level 4.3 g/dL (3.5-5.0); Alkaline Phosphatase 77 U/L (39-117); Anion Gap 13 (12-20); Aspartate Amino Transferase 24 U/L (5-31); Bilirubin Total 0.4 mg/dL (0.0-1.0); Blood Urea Nitrogen 15 mg/dL (9-16); Calcium 8.8 mg/dL (8.4-10.2); Carbon Dioxide 19 mmol/L (22-29); Chloride 109 mmol/L (96-108); Creatinine Clr Calc Pharmacy 78.9; Estimated Glomerular Filt Rate > 60; Glucose Random 104 mg/dL (60-115); Potassium 3.9 mmol/L (3.3-5.1); Sodium 137 mmol/L (135-145); Total Protein 7.2 g/dL (6.5-8.0)
[2024-12-11 04:51] VITALS: BP 154/80; PULSE 93; RESP 17; O2SAT 99
[2024-12-11 05:26] LABS: Influenza A PCR NEGATIVE (Negative); Influenza B PCR NEGATIVE (Negative); Resp Syncy Virus RNA Qual PCR NEGATIVE (Negative); SARS COV2 PCR INHOUSE NEGATIVE (Negative)
[2024-12-11 06:04] VITALS: BP 135/72; PULSE 100; RESP 15; TEMP 36.7; O2SAT 98
[2024-12-11] MEDS: Benzonatate 100 MG CAPSULE 200 MG PO (06:06)
[2024-12-11] MEDS: cefuroxime axetiL 500 MG TABLET PO (06:06)
[2024-12-11 06:20] VITALS: BP 135/72; PULSE 100; RESP 15; TEMP 36.7; O2SAT 98
== END 2024-12-11 06:24 | disposition home or self-care (01) ==
PROVIDERS: Emergency Provider Internal Medicine
DX: J20.9 Acute bronchitis, unspecified (principal); R06.02 Shortness of breath; R07.89 Other chest pain; Z03.818 Encounter for observation for suspected exposure to other biological agents ruled out
CPT/HCPCS: 0241U; 71045; 80053; 84484; 85025; 93005; 96374; 99284; 99285; J2919

== ENCOUNTER → 2024-12-11 04:15 | Outpatient (BNV) | payer OTHER, SELFPAY | PROVIDERS: Emergency Provider Internal Medicine; Visit Provider Specialist | DX: R06.02 Shortness of breath (principal) | CPT/HCPCS: 71045 ==

== ENCOUNTER → 2024-12-11 04:31 | Outpatient (BNV) | payer OTHER, SELFPAY | PROVIDERS: Emergency Provider Internal Medicine; Visit Provider Internal Medicine Cardiovascular Disease | DX: R07.9 Chest pain, unspecified (principal); R06.02 Shortness of breath | CPT/HCPCS: 93010 ==

== ENCOUNTER 2025-01-21 13:02 | Outpatient (AMB) | payer OTHER, SELFPAY ==
--- NOTE | 2025-01-21 13:09 | MHC.PC.OV ---
Vital Signs 01/21/25 13:10 Height 5 ft 4 in Weight 166 lb BMI 28.5 BP 126/78 Blood Pressure Location Lt brachial Position Sitting Pulse 88 Pulse Source Pulse Oximeter Temp 97.1 F Temp Source Temporal Artery Scan Pulse Oximetry (%) 97 Oxygen Delivery Method Room Air Intake Visit Reasons: establish care Allergies No Known Allergies Allergy (Verified 01/21/25 13:14) Medication List - Last Reconciled 01/21/25 by Maggie Rios PA-C albuterol sulfate 90 mcg/actuation 2 puffs inhalation Q6H PRN Tobacco use date assessed: 01/21/25 Dental Screening Dental Screen Date: 01/21/25 Did you have a dental visit in the last 12 months?: Yes Did you have a dental problem in the last 6 months where you did not have access to dental care?: No Was dental information given to patient?: Patient has dentist HPI establish care HPI Details 49 year old female coming to the office for the first time. Presenting for management of anxiety, depression, ADHD, insomnia, and IBS, along with routine preventative care. Anxiety and depression have been longstanding issues for the patient, with recent exacerbation due to current events. The patient has a history of being on multiple medications, including lithium, which was discontinued due to adverse effects. ADHD has been managed with Adderall in the past, but the patient is currently not on medication for it. Insomnia is primarily related to anxiety, with symptoms worsening at night. The patient has tried trazodone for sleep in the past, which was effective without causing morning drowsiness. IBS symptoms include alternating diarrhea and constipation, with sensitivity to certain foods. The patient has self-diagnosed IBS and experiences gastrointestinal symptoms based on dietary intake and stress levels/ colonoscopy: February 2024 mammogram: November 2024 pap smear: overdue last done prior to [facility] Surgical History History of liposuction of abdomen Family History Maternal Grandfather Heart attack Hypertension Maternal Uncle Substance abuse Maternal Grandmother Cancer Other Mental health disorder Social History Household Members: None Housing: House Alcohol intake: current Alcohol intake frequency: holidays/special occasions only Patient Tobacco Use Status: Former Tobacco user e-Cigarette/Vaping Use: Never Used service: No Current occupational status: employed Current occupation: commercial driver's license driver Cognitive needs: No Hearing needs: No Vision needs: Yes Female Reproductive History Menstrual control method: none Total pregnancies: 3 Full term: 1 Ab induced: 2 History of abnormal pap smear: Yes (5 years ago ) Questionnaire PHQ-9 Over the last 2 weeks, how often have you been bothered by any of the following problems? 1. Little interest or pleasure in doing things: nearly every day 2. Feeling down, depressed, or hopeless: several days 3. Trouble falling or staying asleep, or sleeping too much: several days 4. Feeling tired or having little energy: several days 5. Poor appetite or overeating: not at all 6. Feeling bad about yourself - or that you are a failure or have let yourself or your family down: not at all 7. Trouble concentrating on things, such as reading the newspaper or watching television: several days 8. Moving or speaking so slowly that other people could have noticed. Or the opposite - being so fidgety or restless that you have been moving around a lot more than usual: not at all 9. Thoughts that you would be better off or of hurting yourself in some way: not at all Total score: 7 Depression Screening Interpretation: Positive Depression Screening Follow-up: Existing condition Depression Screening Done: Yes 51177 - PHQ-9 Billing: Yes Source: Developed by Drs. Memo Saldivar, Ally Dunne, Westley Friedman and colleagues, with an educational roopa from [employer]. Thrive Questionnaire Date Thrive assessed: 01/21/25 I am a: Patient What is your living situation today?: I choose not to answer this question Within the past 12 months, did the food you bought not last and you didn't have the money to get more?: Never true Within the past 12 months, did you worry whether your food would run out before you got money to buy more?: Never true Do you have trouble paying for medicines?: No Do you have trouble getting transportation to medical appointments?: No Do you have trouble paying your heating and electricity bill?: No Do you have trouble taking care of your child, family member or friend?: No Do you have trouble with day-to-day activities such as bathing, preparing meals, shopping, managing finances, etc.?: No Are you currently unemployed and looking for a job?: No Are you interested in more education?: No Please select the resources that you would like help with: None Currently or been in a relationship where the following occur: No concerns reported THRIVE Score: 0 AUDIT C Alcohol Use Questionnaire (AUDIT-C) 1. How often do you have a drink containing alcohol?: 2-4 times a month 2. How many drinks containing alcohol do you have on a typical day when you are drinking?: 3 or 4 3. How often do you have six or more drinks on one occasion?: Never Total Score: 3 OSCAR-7 AMB Questionnaire OSACR-7 Date OSCAR - 7 assessed: 01/21/25 Feeling nervous, anxious, or on edge: 1 = Several days Not being able to stop or control worryin = Several days Worrying too much about different things: 1 = Several days Trouble relaxin = Several days Being so restless that it is hard to sit still: 1 = Several days Becoming easily annoyed or irritable: 1 = Several days Feeling afraid as if something awful might happen: 1 = Several days Total OSCAR-7 score (0-4 normal; 5-9 mild; 10-14 moderate; 15-21 severe): 7 Source: Developed by Drs. Memo Saldivar, Ally Dunne, Westley Friedman and colleagues, with an educational roopa from [employer]. OSCAR-7 Assessment Billing OSCAR-7 Assessment Tool: OSCAR-7 Assessment 23468 Review of Systems Const Denies body aches, Denies chills, Denies fever(s), Reports headache(s) and Denies poor appetite Eyes Reports no additional complaints ENT Denies dysphagia, Denies dizziness, Reports headache(s) and Denies odynophagia Card Denies chest pain, Denies syncope, Denies edema, Denies irregular heart rhythm, Denies lightheadedness and Denies dyspnea Resp Denies cough and Denies dyspnea GI Denies abdominal pain, Denies melena, Denies hematochezia, Reports constipation, Denies dysphagia, Reports diarrhea, Denies nausea, Denies odynophagia and Denies vomiting Reports no additional complaints Musc Reports no additional complaints and Denies abnormal gait Skin/Breast Reports system reviewed and no additional complaints, except as documented Neuro Denies abnormal gait, Denies dizziness, Denies syncope and Reports headache(s) Psych Reports no additional complaints Physical exam (Primary Care) Vital Signs: Last Vital Signs Temp 97.1 F 01/21/25 13:10 Pulse 88 01/21/25 13:10 BP 126/78 01/21/25 13:10 Pulse Ox 97 01/21/25 13:10 Oxygen Delivery Method Room Air 01/21/25 13:10 BMI result Body Mass Index 28.5 Tobacco/Smoking Status: Tobacco use Status Tobacco use date assessed 01/21/25 01/21/25 13:14 Patient Tobacco Use Status Former Tobacco user 01/21/25 13:15 e-Cigarette/Vaping Use Never Used 01/21/25 13:14 PHQ-9: PHQ-9 Score PHQ-9: Total score 7 01/21/25 13:50 Depression Screening Interpretation: Positive Depression Screening Follow-up: Existing condition Thrive Assessment: Date of Thrive Assessment Date Thrive assessed 01/21/25 01/21/25 13:14 Currently or been in a relationship where the following occur: No concerns reported Const General: cooperative, healthy appearing, comfortable and no acute distress Orientation/consciousness: patient oriented x3 HENMT Head: Yes normocephalic Ears: hearing grossly normal bilaterally General nose exam: Normal external nose present Eyes General: appearance normal, both eyes and all related structures Conjunctivae: conjunctivae normal Neck Neck: Yes full ROM and Yes no lymphadenopathy Resp Effort & Inspection: normal respiratory effort Auscultation: clear to auscultation bilaterally, no crackles, no rales, no rhonchi and no wheezes Cardio Rate: regular rate Rhythm: regular rhythm Skin General skin exam: no rashes or lesions noted Neuro General: patient oriented x3 Gait exam (Neuro): Normal gait present Extrem General: Yes normal to inspection, Yes full ROM and No edema Psych Affect: normal affect Attitude: cooperative Insight: Good insight present (Psych) Judgement: Good judgement present (Psych) Coding Level of Care Code New Pt Level 4 (33752) Diagnoses Mild episode of recurrent major depressive disorder F33.0 Depression Type: major depressive disorder Major depression recurrence: recurrent Active/Remission status: currently active Major depression episode severity: mild Anxiety F41.9 Mild intermittent asthma without complication J45.20 Asthma severity: mild Asthma persistence: intermittent Asthma complication type: uncomplicated Attention deficit hyperactivity disorder (ADHD), unspecified ADHD type F90.9 Attention deficit-hyperactivity disorder type: unspecified Screening for cervical cancer Z12.4 Primary insomnia F51.01 Insomnia type: primary Diarrhea, unspecified type R19.7 Diarrhea type: unspecified type Overweight (BMI 25.0-29.9) E66.3 Additional Codes OSCAR-7 Assessment Billing - OSCAR-7 Assessment Tool: OSCAR-7 Assessment 76056 ([id number]) PHQ-9 - 76654 - PHQ-9 Billing: Yes ([id number]) Assessment & Plan Assessment & Plan (1) Depression: Code(s): F32.A - Depression, unspecified Category: Medical Qualifiers: Depression Type: major depressive disorder Major depression recurrence: recurrent Active/Remission status: currently active Major depression episode severity: mild Qualified Code(s): F33.0 - Major depressive disorder, recurrent, mild Plan: Referral was placed to counseling today for depression and anxiety. Consider medication management however at this time she is not feel it is necessary. (2) Anxiety: Code(s): F41.9 - Anxiety disorder, unspecified Category: Medical Plan: See above plan (3) Asthma: Code(s): J45.909 - Unspecified asthma, uncomplicated Category: Medical Qualifiers: Asthma severity: mild Asthma persistence: intermittent Asthma complication type: uncomplicated Qualified Code(s): J45.20 - Mild intermittent asthma, uncomplicated Plan: Asthma currently controlled on present medications. Continue on albuterol as needed. Avoid triggers such as allergies. (4) ADHD: Code(s): F90.9 - Attention-deficit hyperactivity disorder, unspecified type Category: Medical Qualifiers: Attention deficit-hyperactivity disorder type: unspecified Qualified Code(s): F90.9 - Attention-deficit hyperactivity disorder, unspecified type Plan: Referral was placed to outpatient psych clinic today for further diagnosis and treatment. (5) Screening for cervical cancer: Code(s): Z12.4 - Encounter for screening for malignant neoplasm of cervix Category: Medical Plan: Referral was placed to gynecology today (6) Insomnia: Code(s): G47.00 - Insomnia, unspecified Category: Medical Qualifiers: Insomnia type: primary Qualified Code(s): F51.01 - Primary insomnia Plan: Plan to trial trazodone 50 mg for insomnia. She has been on this medication in the past and found this beneficial. Plan to follow up in 3 months or sooner if needed (7) Diarrhea: Code(s): R19.7 - Diarrhea, unspecified Category: Medical Qualifiers: Diarrhea type: unspecified type Qualified Code(s): R19.7 - Diarrhea, unspecified Plan: Patient having alternating diarrhea and constipation consistent with possible IBS. Plan to trial a low FODMAP diet as well as fiber supplement for further treatment. Plan to follow up in 3 months or sooner as needed (8) Overweight (BMI 25.0-29.9): Code(s): E66.3 - Overweight Category: Medical Plan: Healthy diet and regular exercise is encouraged. Plan The patient will be referred to a counselor for management of anxiety and depression, with the possibility of resuming medication if deemed necessary by the mental health provider. Trazodone will be prescribed at the lowest dose for insomnia, with instructions to adjust the dose based on tolerance and effectiveness. A referral to an outpatient psychiatric clinic will be made for ADHD management, with potential medication adjustments based on evaluation. For IBS, dietary modifications including a low FODMAP diet and increased fiber intake are recommended to manage symptoms. The patient is advised to maintain a headache diary to identify potential triggers and patterns. Routine blood work, including a fasting cholesterol test, will be conducted to monitor overall health. Preventative care measures include scheduling a Pap smear and follow-up for mammogram and colonoscopy results. This note was constructed using voice recognition software. While every effort has been made to ensure accuracy and coroner technician, still areas may have been included sometimes these areas may affect the content or meeting of the given symptoms. Total time spent caring for the patient today was 30 minutes. This includes time spent before the visit reviewing the chart, time spent during the visit, and time spent after the visit and documentation. Patient was informed and verbally consented to the use of an ambient scribe for clinic note documentation during this visit. Orders: Orders TSH reflex Free T4 Today F41.9 - Anxiety disorder, unspecified, Z00.00 - Encounter for general adult medical examination without abnormal findings Free T4 (Free Thyroxine) Today F41.9 - Anxiety disorder, unspecified, Z00.00 - Encounter for general adult medical examination without abnormal findings Comprehensive Met. Panel Today F41.9 - Anxiety disorder, unspecified, Z00.00 - Encounter for general adult medical examination without abnormal findings Lipid Panel Today Z13.220 - Encounter for screening for lipoid disorders Transglutaminase Ab IgG Today R19.7 - Diarrhea, unspecified Vitamin B12 and Folate Today F41.9 - Anxiety disorder, unspecified, Z13.21 - Encounter for screening for nutritional disorder Vitamin D 25-OH Total Today F41.9 - Anxiety disorder, unspecified, Z00.00 - Encounter for general adult medical examination without abnormal findings Complete Blood Count Auto Diff Today F41.9 - Anxiety disorder, unspecified, Z00.00 - Encounter for general adult medical examination without abnormal findings Referrals Counseling Referral F32.A - Depression, unspecified, F41.9 - Anxiety disorder, unspecified, F90.9 - Attention-deficit hyperactivity disorder, 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.4 - Encounter for screening for malignant neoplasm of cervix Psychiatry Outpatient Consultation Service F32.A - Depression, unspecified, F41.9 - Anxiety disorder, unspecified, F90.9 - Attention-deficit hyperactivity disorder, unspecified type Medications: New trazodone 50 mg PO BEDTIME 30 tabs 1RF Discontinued cyclobenzaprine Do not use this medication before driving or using machinery Discontinued Reason: Patient no longer taking 10 mg PO TID PRN 10 tabs 0RF muscle spasm azithromycin start on day 2 of therapy Discontinued Reason: Patient no longer taking 250 mg PO DAILY 4 days 4 tabs 0RF amoxicillin-pot clavulanate 875-125 mg Discontinued Reason: Patient no longer taking 1 tab PO BID 7 days 14 tabs 0RF cefuroxime axetil Discontinued Reason: Patient no longer taking 500 mg PO BID 7 days 14 tabs 0RF benzonatate Discontinued Reason: Patient no longer taking 200 mg PO TID PRN 20 caps 0RF cough prednisone Discontinued Reason: Patient no longer taking 40 mg (2 x 20 mg) PO DAILY 10 tabs 0RF
[2025-01-21 13:10] VITALS: BP 126/78; PULSE 88; TEMP 36.2; O2SAT 97; BMI 28.5
--- OUTSIDE RECORDS SUMMARY | 2025-01-21 13:30 | XMS_ITS | Clinical Summary ---
Author Organization [address] Address [address] [place] [phone] Phone Care Team Providers Care Medical Records Analyst Name Role Phone Eliza Jolly MD Primary Care Provider [phone] Allergies No known active allergies Medications bisacodyL (DULCOLAX) 5 mg EC tablet Take 2 tablets by mouth right before your first dose of liquid prep. 02/09/2024 Active hydrOXYzine HCL (ATARAX) 25 mg tablet Take 1 Tablet by mouth every 6 hours as needed for Anxiety for up to 40 doses. 03/23/2023 Active naproxen (NAPROSYN) 500 mg tablet Take 1 Tablet by mouth 2 times daily as needed for Pain. 03/23/2023 Active bisacodyL (DULCOLAX) 5 mg EC tablet Take 2 tablets by mouth right before your first dose of liquid prep. 02/15/2024 Active Active Problems Problem Noted Date Diagnosed Date Anemia 08/08/2014 Asthma 08/08/2014 Encounters Date Type Department Care Team Description 11/17/2024 10:15 AM EDT - 11/17/2024 11:59 PM EDT Hospital Encounter Radiology Department - [address] [phone] Encounter for screening mammogram for breast cancer Discharge Disposition: Home or Self Care from Last 3 Months Immunizations Name Administration Dates Next Due Hepatitis B (Hnphwiw-H-Wsllu , Recombivax HB-Adult) 19yo and older 07/15/2004,05/29/2004 Influenza trivalent, 0.5mL, preservative free (Fluarix; FluLaval; Fluzone) ages 6mo and older (Afluria) 3 years and older 08/08/2014 PPD Test 05/27/2004 Pneumococcal polysaccharide 23 valent (Pneumovax 23) 2yo and older 10/10/2014 Td Tetanus diptheria (Tdvax) 7yo and older 07/18 Tdap Tetanus diptheria acell ular pertussis (Boostrix; Adacel) 7yo and older 08/08/2014 Surgical History Surgery Date Site/Laterality Comments TONSILLECTOMY PROCEDURE: HISTORICAL TONSILLECTOMY Medical History Medical History Date Comments Historical Medical DX DX:Abnorma l Pap smear; COMMENT: biopsy done, unaware of the results, 2006 Trichomonas infection DX:Trichom onas infection; COMMENT: 2006 Asthma 01/07/2011 DX:Asthma Family History Medical History Relation Name Comments Heart attack Maternal Grandfather Other: liver cancer Maternal Grandmother Cataracts Paternal Grandmother Glaucoma Paternal Grandmother Lung cancer Paternal Grandmother d age 70's Blindness Neg Hx Breast cancer Neg Hx Macular degeneration Neg Hx Strabismus Neg Hx Relation Name Status Comments Father Alive ?PMH Maternal Grandfather [place] at l ate 50's Maternal Grandmother liver c ancer Mother Alive healthy Paternal Grandmother Alive DM, hyp erchol Sister 1 Alive healthy Sister 2 Alive Social History Tobacco Use Types Packs/Day Years Used Date Smoking Tobacco: Never Smokeless Tobacco: Never Alcohol Use Standard Drinks/Week Comments Yes 0 (1 standard drink = 0.6 oz pur e alcohol) Comments Unknown Sex and Gender Information Value Date Recorded Sex Assigned at Not on file Legal Sex Female 10:55 PM EST Gender Identity Not on file Sexual Orientation Not on file Obstetrics History Para Term AB IAB SAB Ectopic Multiple Livin g Live Births 1 1 1 1 Date Outcome GA Total Labor Labor/2nd/3rd Weight Sex Type Anes PTL Romy A1 A5 Name Clin Term Last Filed Vital Signs Vital Sign Reading Time Taken Comments Blood Pressure 122/74 06/24/2023 10:08 AM EST Pulse 76 06/24/2023 10:08 AM EST Temperature - - Respiratory Rate - - Oxygen Saturation - - Inhaled Oxygen Concentration - - Weight 79.4 kg (175 lb) 06/24/2023 10:08 AM EST Height 162.6 cm (5' 4 ) 06/24/2023 10:08 AM EST Body Mass Index 30.04 06/24/2023 10:08 AM EST Plan of Treatment Health Maintenance Due Date Last Done Comments Hepatitis B Vaccines (3 of 3 - 19+ 3-dose series) 11/26/2004 07/15/2004, 05/29/2004 Pneumococcal Vaccine: Pediatrics (0 to 5 Years) and At-Risk Patients (6 to 49 Years) (2 of 2 - PCV) 10/11/2015 10/10/2014 Colorectal Cancer Screening: Colonoscopy 06/26/2022 Depression Screening 06/26/2022 Social Influencers of Health Screening 06/26/2022 COVID-19 Vaccine ( - season) 2024 08/12/2021, 12/03/2020, 11/05/2020 DTaP,Tdap,and Td Vaccines (3 - Td or Tdap) 08/08/2024 08/08/2014, 07/18/2001 Influenza Vaccine (#1) 2025 08/08/2014 Cervical Cancer Screening: HPV 05/04/2026 05/04/2021 Breast Cancer Screening 11/17/2026 11/18/19, 10/29/2023, 10/05/2022, Additional history exists HIV Screening Completed 05/04/2021 Hepatitis C Screening Completed 05/04/2021 HIB Vaccines Aged Out No longer eligi ble based on patient's age to complete this topic HPV Vaccines Aged Out No longer eligi ble based on patient's age to complete this topic Hepatitis A Vaccines Aged Out No long er eligible based on patient's age to complete this topic IPV Vaccines Aged Out No longer eligi ble based on patient's age to complete this topic MMR Vaccines Aged Out No longer eligi ble based on patient's age to complete this topic Meningococcal ACWY Vaccine Aged Out N o longer eligible based on patient's age to complete this topic Meningococcal B Vaccine Aged Out No l onger eligible based on patient's age to complete this topic RSV Immunization Patients Under 20 months Aged Out No longer eligible based on patient's age to complete this topic Varicella Vaccines Aged Out No longer eligible based on patient's age to complete this topic Procedures Procedure Name Priority Date/Time Associated Diagnosis Comments MG MAMMO DIGITAL SCREENING W ALEKSEY BILAT Routine 11/17/2024 10:26 AM EDT Encounter for screening mammogram for breast cancer HM HPV Routine 05/04/2021 HEPATITIS C SCREENING Routine 05/04/2021 HIV SCREENING Routine 05/04/2021 from Last 3 Months or Most Recently Relevant to Health Maintenance Results * MG Mammo Digital Screening w Aleksey bilat (11/17/2024 10:26 AM EDT) Anatomical Region Laterality Modality Breast Bilateral Mammography 11/17/2024 4:54 PM EDT Impressions 11/17/2024 4:57 PM EDT No mammographic evidence for malignancy. BI-RADS CATEGORY: 2 - BENIGN RECOMMENDATION: Screening bilateral mammogram is recommended in 1 year. Mammo Location: [facility], [address] [place] [address], [id number], . -------- FINAL REPORT -------- Dictated By: Mariah Abraham Dictated Date: 11/17/2024 16:54 ET Assigned Physician: Mariah Abraham Reviewed and Electronically Signed By: Mariah Abraham Signed Date: 11/17/2024 16:57 ET Workstation ID: [id number] Transcribed By: Self Edit Transcribed Date: 11/17/2024 16:54 ET Narrative 11/17/2024 4:57 PM EDT Bilateral screening mammogram. CLINICAL: 49 years old, Female, routine annual exam. Status post injection of the fat in both breasts in January 2024. COMPARISON: Prior mammograms, latest from 10/29/2023. TECHNIQUE: Bilateral MLO and CC views were obtained digitally with 2-D C views and 3-D mammogram (digital breast tomosynthesis). Computer-aided detection was utilized in evaluation of this exam (CAD). FINDINGS: There is interval development of from bilateral lipid cysts, more numerous in the left breast. There is no evidence of suspicious mass or architectural distortion. No worrisome calcifications are evident. There has been no significant change from prior exam(s). BREAST DENSITY: B - There are scattered areas of fibroglandular density. Procedure Note Mariah Abraham MD - 11/17/2024 Bilateral screening mammogram. CLINICAL: 49 years old, Female, routine annual exam. Status postinjection of the fat in both breasts in January 2024. COMPARISON: Prior mammograms, latest from 10/29/2023. TECHNIQUE: Bilateral MLO and CC views were obtained digitally with 2-D Cviews and 3-D mammogram (digital breast tomosynthesis). Computer-aideddetection was utilized in evaluation of this exam (CAD). FINDINGS: There is interval development of from bilateral lipid cysts, more numerousin the left breast. There is no evidence of suspicious mass or architectural distortion. Noworrisome calcifications are evident. There has been no significantchange from prior exam(s). BREAST DENSITY: B - There are scattered areas of fibroglandular density. IMPRESSION: No mammographic evidence for malignancy. BI-RADS CATEGORY: 2 - BENIGN RECOMMENDATION: Screening bilateral mammogram is recommended in 1 year. Mammo Location: [facility], [address] [place] [address], [id number], . -------- FINAL REPORT -------- Dictated By: Mariah Abraham Dictated Date: 11/17/2024 16:54 ET Assigned Physician: Mariah Abraham Reviewed and Electronically Signed By: Mariah Abraham Signed Date: 11/17/2024 16:57 ET Workstation ID: [id number] Transcribed By: Self Edit Transcribed Date: 11/17/2024 16:54 ET Eliza Jolly MD IMG BI PROCEDURES Final Result * Cervical Cancer Screening: HPV (05/04/2021) Pathologist [facility] Cervical Cancer Screening: HPV Negative Abstracted Historical Provider HEALTH MAINTENANCE Final Result * HIV Screening (05/04/2021) [facility] HIV Screening Abstracted Historical Provider HEALTH MAINTENANCE Final Result * Hepatitis C Screening (05/04/2021) [facility] Hepatitis C Screening Abstracted us Historical Provider HEALTH MAINTENANCE Final Result from Last 3 Months or Most Recently Relevant to Health Maintenance Insurance [place] [address] PLAN Care Teams Medical Records Analyst Relationship Specialty Start Date End Date Eliza Jolly MD PCP - General Internal Medicine 03/01/22
== END 2025-01-21 14:05 | disposition home or self-care (01) ==
LOC: HO.HMCH 13:03
DX: F33.0 Major depressive disorder, recurrent, mild (principal); F41.9 Anxiety disorder, unspecified; J45.20 Mild intermittent asthma, uncomplicated; F90.9 Attention-deficit hyperactivity disorder, unspecified type; Z12.4 Encounter for screening for malignant neoplasm of cervix; F51.01 Primary insomnia; R19.7 Diarrhea, unspecified; E66.3 Overweight

== ENCOUNTER → 2025-01-21 13:02 | Outpatient (BNVA) | payer OTHER, SELFPAY | DX: K58.0 Irritable bowel syndrome with diarrhea (principal); F41.9 Anxiety disorder, unspecified; F90.9 Attention-deficit hyperactivity disorder, unspecified type; F33.0 Major depressive disorder, recurrent, mild; J45.20 Mild intermittent asthma, uncomplicated; F51.01 Primary insomnia; E66.3 Overweight | CPT/HCPCS: 96127; 99202 ==

== ENCOUNTER 2025-02-05 12:34 | Outpatient (REF) | payer OTHER, SELFPAY ==
[2025-02-05 12:53] LABS: MANUAL DIFF FLAG NO
--- OUTSIDE RECORDS SUMMARY | 2025-02-05 13:35 | XMS_ITS | Clinical Summary ---
Author Organization [address] Address [address] [place] [phone] Phone Care Team Providers Care Fish Bait Picker Name Role Phone Eliza Jolly MD Primary Care Provider [phone] Allergies No known active allergies Medications bisacodyL [...] PM EDT Hospital Encounter Radiology Department - [address] [phone] Encounter for screening mammogram for breast cancer Discharge Disposition: Home or Self Care from Last 3 Months Immunizations Name Administration Dates Next Due Hepatitis B ([place]-U-Xfwve , Recombivax HB-Adult) 19yo and older 07/15/2004,05/29/2004 [...] Status Comments Father Alive ?PMH Maternal Grandfather [place] at l ate 50's Maternal Grandmother liver [...] 10/11/2015 10/10/2014 Colorectal Cancer Screening: Colonoscopy 06/26/2022 Social Influencers of Health Screening 06/26/2022 COVID-19 Vaccine ( - season) 2024 08/12/2021, 12/03/2020, 11/05/2020 Depression Screening 07/18/2024 DTaP,Tdap,and Td Vaccines (3 - Td or [...] is recommended in 1 year. Mammo Location: [facility], [address] [place] [address], [id number], . -------- FINAL REPORT -------- Dictated By: Mariah Abraham Dictated Date: 11/17/2024 16:54 ET Assigned Physician: Mariah Abraham Reviewed and Electronically Signed By: Mariah Abraham Signed Date: 11/17/2024 16:57 ET Workstation ID: [id number] Transcribed By: Self Edit Transcribed Date: 11/17/2024 [...] is recommended in 1 year. Mammo Location: [facility], [address] [place] [address], [id number], . -------- FINAL REPORT -------- Dictated By: Mariah Abraham Dictated Date: 11/17/2024 16:54 ET Assigned Physician: Mariah Abraham Reviewed and Electronically Signed By: Mariah Abraham Signed Date: 11/17/2024 16:57 ET Workstation ID: [id number] Transcribed By: Self Edit Transcribed Date: 11/17/2024 16:54 ET Eliza Jolly MD IMG BI PROCEDURES Final Result * Cervical Cancer Screening: HPV (05/04/2021) Pathologist [facility] Cervical Cancer Screening: HPV Negative Abstracted Historical Provider HEALTH MAINTENANCE Final Result * HIV Screening (05/04/2021) [facility] HIV Screening Abstracted Historical Provider HEALTH MAINTENANCE Final Result * Hepatitis C Screening (05/04/2021) [facility] Hepatitis C Screening Abstracted us Historical Provider HEALTH MAINTENANCE Final Result from Last 3 Months or Most Recently Relevant to Health Maintenance Insurance [place] [address] PLAN Care Teams Fish Bait Picker Relationship Specialty Start Date End Date Eliza Jolly MD PCP - General Internal Medicine 03/01/22
[2025-02-05 14:04] LABS: Hematocrit 35.7 % (37.0-47.0); Hemoglobin 11.7 g/dl (12.0-16.0); Imm Gran Abs Auto 0.02 X10*3/uL (0.00-0.03); Imm Gran Pct Auto 0.3 % (0.0-0.4); Lymphocytes Absolute Auto 1.7 X10*3/uL (1.2-4.9); Mean Corpuscular HGB Conc 32.8 g/dl (31.0-35.0); Mean Corpuscular Hemoglobin 27.7 pg (27.0-33.0); Mean Corpuscular Volume 84.6 fL (80.0-98.0); NRBC Abs Auto 0.000 X10*3/uL (0.0-0.012); NRBC Pct Auto 0.0 /100WBC (0.0-0.2); Platelet Count 445 X10*3/uL (160-400); Red Blood Count 4.22 X10*6/uL (4.20-5.50); White Blood Count 7.0 X10*3/uL (4.8-10.8)
[2025-02-05 15:08] LABS: Alanine Aminotransferase 37 U/L (0-31); Albumin Level 4.2 g/dL (3.5-5.0); Alkaline Phosphatase 62 U/L (39-117); Anion Gap 12 (12-20); Aspartate Amino Transferase 31 U/L (5-31); Blood Urea Nitrogen 19 mg/dL (9-16); Calcium 9.0 mg/dL (8.4-10.2); Carbon Dioxide 23 mmol/L (22-29); Chloride 110 mmol/L (96-108); Cholesterol 209 mg/dL (<200); Estimated Glomerular Filt Rate > 60; HDL Cholesterol 58 mg/dL (>40); Potassium 4.1 mmol/L (3.3-5.1); Sodium 141 mmol/L (135-145); Total Protein 6.8 g/dL (6.5-8.0); Triglycerides 214 mg/dL (<150)
[2025-02-05 15:12] LABS: Free T4 (Free Thyroxine) 0.87 ng/dL (0.71-1.85)
[2025-02-05 15:28] LABS: Folate 7.7 ng/mL (> or = 4.0); Vitamin B12 321 pg/mL (200-900)
[2025-02-06 21:18] LABS: Transglutaminase Ab IgG <1.0 U/mL
== END 2025-02-05 12:35 | disposition home or self-care (01) ==
LOC: HO.LAB 12:34
DX: Z00.00 Encounter for general adult medical examination without abnormal findings (principal); F41.9 Anxiety disorder, unspecified; R19.7 Diarrhea, unspecified; Z13.21 Encounter for screening for nutritional disorder; Z13.220 Encounter for screening for lipoid disorders
CPT/HCPCS: 36415; 80053; 80061; 82306; 82607; 82746; 84439; 84443; 85025; 86364

== ENCOUNTER 2025-04-24 10:40 | Outpatient (AMB) | payer OTHER, SELFPAY ==
[2025-04-24 10:43] VITALS: BP 140/72; PULSE 94; RESP 18; TEMP 36.2; O2SAT 99; BMI 28.0
--- NOTE | 2025-04-24 10:43 | A.OFFPC_ITS ---
Vital Signs 04/24/25 10:43 04/24/25 11:24 Height 5 ft 4 in Weight 163 lb BMI 28.0 BP 140/72 H 134/80 Blood Pressure Location Lt brachial Lt brachial Position Sitting Sitting Respiration 18 Pulse 94 Pulse Source Pulse Oximeter Temp 97.1 F Temp Source Temporal Artery Scan Pulse Oximetry (%) 99 Oxygen Delivery Method Room Air Intake Visit Reasons: Annual Exam Shift Supervisor Required: No Accompanied by: Self / Same As Patient Allergies No Known Allergies Allergy (Verified 04/24/25 10:51) Medication List - Last Reconciled 04/24/25 by Maggie Rios PA-C albuterol sulfate 90 mcg/actuation 2 puffs inhalation Q6H PRN cholecalciferol (vitamin D3) 25 mcg PO DAILY trazodone 50 mg PO BEDTIME Tobacco use date assessed: 04/24/25 Dental Screening Dental Screen Date: 04/24/25 Did you have a dental visit in the last 12 months?: Yes Did you have a dental problem in the last 6 months where you did not have access to dental care?: No Was dental information given to patient?: Patient has dentist HPI Annual Exam HPI Details 49 year old female with past medical his tory of asthma, depression, anxiety, ADHD and insomnia last seen 01/2025 coming in for annual exam. Presenting for an annual wellness visit. The patient is aware of her high cholesterol levels and has been attempting to manage it through dietary changes, though she finds it challenging. The patient reports occasional diarrhea, which she associates with dietary intake, particularly milk and red meat. She has reduced her intake of these foods and switched to alternatives like almond milk. The patient experiences chest pain, particularly at night, which she attributes to anxiety. She has visited the emergency room twice this year due to these symptoms. Workup thus far has been negative. The patient has elevated triglycerides, likely related to sugar intake. She has been advised to reduce consumption of sugary foods. colonoscopy: February 2024 mammogram: November 2024 pap smear: overdue last done prior to 2019 vaccines: TDAP due but not in the office - flu given today PFSH Surgical History History of liposuction of abdomen Family History Maternal Grandfather Heart attack Hypertension Maternal Uncle Substance abuse Maternal Grandmother Cancer Other Mental health disorder Social History Household Members: None Housing: House Alcohol intake: current Alcohol intake frequency: holidays/special occasions only Patient Tobacco Use Status: Former Tobacco user e-Cigarette/Vaping Use: Never Used service: No Current occupational status: employed Current occupation: guard driver Cognitive needs: No Hearing needs: No Vision needs: Yes Questionnaire PHQ-9 Over the last 2 weeks, how often have you been bothered by any of the following problems? 1. Little interest or pleasure in doing things: nearly every day 2. Feeling down, depressed, or hopeless: several days 3. Trouble falling or staying asleep, or sleeping too much: several days 4. Feeling tired or having little energy: several days 5. Poor appetite or overeating: not at all 6. Feeling bad about yourself - or that you are a failure or have let yourself or your family down: not at all 7. Trouble concentrating on things, such as reading the newspaper or watching television: several days 8. Moving or speaking so slowly that other people could have noticed. Or the opposite - being so fidgety or restless that you have been moving around a lot more than usual: not at all 9. Thoughts that you would be better off or of hurting yourself in some way: not at all Total score: 7 Depression Screening Interpretation: Positive (referral to counseling ) Depression Screening Follow-up: Existing condition Depression Screening Done: Yes Source: Developed by Drs. Memo Saldivar, Ally Dunne, Westley Friedman and colleagues, with an educational roopa from [employer]. Thrive Questionnaire Date Thrive assessed: 01/21/25 I am a: Patient What is your living situation today?: I choose not to answer this question Within the past 12 months, did the food you bought not last and you didn't have the money to get more?: Never true Within the past 12 months, did you worry whether your food would run out before you got money to buy more?: Never true Do you have trouble paying for medicines?: No Do you have trouble getting transportation to medical appointments?: No Do you have trouble paying your heating and electricity bill?: No Do you have trouble taking care of your child, family member or friend?: No Do you have trouble with day-to-day activities such as bathing, preparing meals, shopping, managing finances, etc.?: No Are you currently unemployed and looking for a job?: No Are you interested in more education?: No Please select the resources that you would like help with: None Currently or been in a relationship where the following occur: No concerns reported THRIVE Score: 0 OSCAR-7 AMB Questionnaire OSCAR-7 Date OSCAR - 7 assessed: 01/21/25 Feeling nervous, anxious, or on edge: 1 = Several days Not being able to stop or control worryin = Several days Worrying too much about different things: 1 = Several days Trouble relaxin = Several days Being so restless that it is hard to sit still: 1 = Several days Becoming easily annoyed or irritable: 1 = Several days Feeling afraid as if something awful might happen: 1 = Several days Total OSCAR-7 score (0-4 normal; 5-9 mild; 10-14 moderate; 15-21 severe): 7 Source: Developed by Drs. Memo Saldivar, Ally Dunne, Westley Friedman and colleagues, with an educational roopa from [employer]. Review of Systems Const Denies body aches, Denies fatigue, Denies fever(s), Denies frequent falls, Denies headache(s) and Denies weakness Eyes Reports no additional complaints and Denies change in vision ENT Denies dysphagia, Denies dizziness, Denies facial pain, Denies headache(s), Denies nasal congestion and Denies odynophagia Card Reports chest pain (with anxiety), Denies syncope, Denies irregular heart rhythm, Denies leg edema, Denies lightheadedness and Denies dyspnea Resp Denies cough and Denies dyspnea GI Denies abdominal pain, Denies constipation, Denies dysphagia, Denies dyspepsia, Denies heartburn, Reports diarrhea, Denies nausea, Denies odynophagia and Denies vomiting Denies urinary frequency, Denies dysuria, Denies urinary hesitancy and Denies urinary urgency Musc Denies back pain and Denies myalgias Skin/Breast Reports system reviewed and no additional complaints, except as documented Neuro Denies dizziness, Denies syncope, Denies frequent falls, Denies headache(s) and Denies weakness Psych Reports no additional complaints Endo Denies fatigue Physical exam (Primary Care) Vital Signs: Last Vital Signs Temp 97.1 F 04/24/25 10:43 Pulse 94 04/24/25 10:43 Resp 18 04/24/25 10:43 BP 134/80 04/24/25 11:24 Pulse Ox 99 04/24/25 10:43 Oxygen Delivery Method Room Air 04/24/25 10:43 BMI result Body Mass Index 28.0 Tobacco/Smoking Status: Tobacco use Status Tobacco use date assessed 04/24/25 04/24/25 10:49 Patient Tobacco Use Status Former Tobacco user 04/24/25 10:49 e-Cigarette/Vaping Use Never Used 04/24/25 10:49 PHQ-9: PHQ-9 Score PHQ-9: Total score 7 04/24/25 11:09 Depression Screening Interpretation: Positive (referral to counseling ) Depression Screening Follow-up: Existing condition Thrive Assessment: Date of Thrive Assessment Date Thrive assessed 01/21/25 04/24/25 10:49 Currently or been in a relationship where the following occur: No concerns reported Const General: cooperative, healthy appearing, comfortable and no acute distress Orientation/consciousness: patient oriented x3 HENMT Head: Yes normocephalic Ears: hearing grossly normal bilaterally, external ears normal, TM's normal bilaterally and EAC's normal General nose exam: Normal external nose present Face and sinus: Yes normal facial exam and Yes sinuses nontender Mouth: Normal oral and palatal mucosa present and tongue normal Throat: Yes posterior oropharynx normal Eyes General: appearance normal, both eyes and all related structures Conjunctivae: conjunctivae normal Pupils: Equal, round and reactive pupils present EOM: EOMs intact bilaterally and No Nystagmus present Neck Neck: Yes normal visual inspection, Yes full ROM and Yes no lymphadenopathy Chest Chest palpation & inspection: normal inspection of the chest Resp Effort & Inspection: normal respiratory effort Auscultation: clear to auscultation bilaterally, no crackles, no rales, no rhonchi, no wheezes and breath sounds present Cardio Rate: regular rate Rhythm: regular rhythm Peripheral pulses: radial pulses present and dorsalis pedis present GI Inspection: Yes normal to inspection and No Abdominal wall edema Palpation (GI): Soft to palpation, not firm and nontender Auscultation: normal bowel sounds Rectal Exam - Female: deferred General: Yes no CVA tenderness Back/Spine/Pelvis Back: no CVA tenderness Skin General skin exam: no rashes or lesions noted Neuro General: patient oriented x3 Cranial nerves: Yes Equal, round and reactive pupils present, Yes Midline tongue present, Yes Ability to bilaterally elevate shoulders present and No Nystagmus present Gait exam (Neuro): Normal gait present Extrem General: Yes normal to inspection, Yes full ROM, No no pedal edema and No edema Psych Speech and movement: Normal speech and movement present Affect: normal affect Insight: Good insight present (Psych) Judgement: Good judgement present (Psych) Office Procedures Flu Questionnaire Does the patient have a severe egg allergy?: No Does the patient have severe life threatening allergies?: No Does the patient have a fever or illness today?: No Has the patient ever had Guillain-Ekron Syndrome?: No Has the patient ever had any past reaction to a flu shot?: No Immunizations Fluarix [id number] (PF) 45 mcg (15 mcg x 3)/0.5 mL IM syringe Performing Provider: Maggie Rios PA-C [facility] Administered by: SHANNON Aguirre on 04/24/25 11:35 Dose Route Admin Location Dispensed Lot Number Expiration Date NCC Salvage Diver 0.5 mL IM Left Deltoid 0.5 mL [id number] 01/14/26 [id number] [employer] 2 VIS Given Date VIS Provided VIS Publication Date 04/24/25 Single Vaccine 24 Eligibility Eligibility Date Funding Source Not [facility] Eligible 04/24/25 Private Coding Level of Care Code Est Pt Prev Care 40-64y([id number]) Diagnoses Annual physical exam Z00.00 Mild episode of recurrent major depressive disorder F33.0 Active/Remission status: currently active Depression Type: major depressive disorder Major depression episode severity: mild Major depression recurrence: recurrent Anxiety F41.9 Mild intermittent asthma without complication J45.20 Asthma complication type: uncomplicated Asthma persistence: intermittent Asthma severity: mild Attention deficit hyperactivity disorder (ADHD), unspecified ADHD type F90.9 Attention deficit-hyperactivity disorder type: unspecified Screening for cervical cancer Z12.4 Primary insomnia F51.01 Insomnia type: primary Diarrhea, unspecified type R19.7 Diarrhea type: unspecified type Overweight (BMI 25.0-29.9) E66.3 Hypertriglyceridemia E78.1 Chest discomfort R07.89 Assessment & Plan Assessment & Plan (1) Annual physical exam: Code(s): Z00.00 - Encounter for general adult medical examination without abnormal findings Category: Medical Plan: Patient is up to date on all recommended routine screenings and vaccinations for her age. She is due for Tdap today however we are out of stock in the office. She did receive the flu shot in office today. Healthy diet and regular exercise is encouraged. Blood work is up to date and has been reviewed with the patient today. (2) Depression: Code(s): F32.A - Depression, unspecified Category: Medical Qualifiers: Active/Remission status: currently active Depression Type: major depressive disorder Major depression episode severity: mild Major depression recurrence: recurrent Qualified Code(s): F33.0 - Major depressive disorder, recurrent, mild Plan: updated referral to the counseling service today and provided patient with referral. (3) Anxiety: Code(s): F41.9 - Anxiety disorder, unspecified Category: Medical Plan: See above plan (4) Asthma: Code(s): J45.909 - Unspecified asthma, uncomplicated Category: Medical Qualifiers: Asthma complication type: uncomplicated Asthma persistence: intermittent Asthma severity: mild Qualified Code(s): J45.20 - Mild intermittent asthma, uncomplicated Plan: Asthma currently controlled on present medications. Continue on albuterol as needed. Avoid triggers such as allergies. (5) ADHD: Code(s): F90.9 - Attention-deficit hyperactivity disorder, unspecified type Category: Medical Qualifiers: Attention deficit-hyperactivity disorder type: unspecified Qualified Code(s): F90.9 - Attention-deficit hyperactivity disorder, unspecified type Plan: Referral was placed to outpatient psych clinic today for further diagnosis and treatment. Updated referral and sent message to office today. (6) Screening for cervical cancer: Code(s): Z12.4 - Encounter for screening for malignant neoplasm of cervix Category: Medical Plan: Referral was placed to gynecology today - updated as we have been having issues getting her to be seen. (7) Insomnia: Code(s): G47.00 - Insomnia, unspecified Category: Medical Qualifiers: Insomnia type: primary Qualified Code(s): F51.01 - Primary insomnia Plan: Trazodone has been beneficial being used as needed. (8) Diarrhea: Code(s): R19.7 - Diarrhea, unspecified Category: Medical Qualifiers: Diarrhea type: unspecified type Qualified Code(s): R19.7 - Diarrhea, unspecified Plan: Diarrhea has been improving with the elimination of dairy products. She has also been cutting back on red meat which has been helpful. (9) Overweight (BMI 25.0-29.9): Code(s): E66.3 - Overweight Category: Medical Plan: Healthy diet and regular exercise is encouraged. (10) Hypertriglyceridemia: Code(s): E78.1 - Pure hyperglyceridemia Category: Medical Plan: Avoid foods that are high in cholesterol such as red meat, fried foods, eggs and baked goods. Triglyceride goal of less than 150 and LDL goal of less than 130. She has been improving her diet and plan to repeat labs. Follow up in 3 months. (11) Chest discomfort: Code(s): R07.89 - Other chest pain Category: Medical Plan: She reports episodes of chest discomfort with anxiety primarily. The episodes are random and never associated with exercise and no other symptoms are present and pain typically resolves after a few minutes. She will keep a log of disc omfort and bring this to her next visit. She has had workups done previously in ED which have been negative for cardiac etiology. Plan This note was constructed using voice recognition software. While every effort has been made to ensure accuracy and grocery clerk, still areas may have been included sometimes these areas may affect the content or meeting of the given symptoms. Total time spent caring for the patient today was 30 minutes. This includes time spent before the visit reviewing the chart, time spent during the visit, and time spent after the visit and documentation. Patient was informed and verbally consented to the use of an ambient scribe for clinic note documentation during this visit. Orders: Orders Lipid Panel Today E78.00 - Pure hypercholesterolemia, unspecified Influenza [id number] Immunization Today Z23 - Encounter for immunization Referrals SALES CONSULTING DIRECTOR Referral Z12.4 - Encounter for screening for malignant neoplasm of cervix Counseling Referral F33.0 - Major depressive disorder, recurrent, mild, F41.9 - Anxiety disorder, unspecified, F90.9 - Attention-deficit hyperactivity disorder, unspecified type
[2025-04-24 11:24] VITALS: BP 134/80
== END 2025-04-24 11:33 | disposition home or self-care (01) ==
LOC: HO.HMCH 10:40
DX: Z00.00 Encounter for general adult medical examination without abnormal findings (principal); F33.0 Major depressive disorder, recurrent, mild; F41.9 Anxiety disorder, unspecified; J45.20 Mild intermittent asthma, uncomplicated; F90.9 Attention-deficit hyperactivity disorder, unspecified type; Z12.4 Encounter for screening for malignant neoplasm of cervix; F51.01 Primary insomnia; R19.7 Diarrhea, unspecified; E66.3 Overweight; E78.1 Pure hyperglyceridemia; R07.89 Other chest pain; Z23 Encounter for immunization

== ENCOUNTER → 2025-04-24 10:40 | Outpatient (BNVA) | payer OTHER, SELFPAY | DX: Z00.00 Encounter for general adult medical examination without abnormal findings (principal); E78.00 Pure hypercholesterolemia, unspecified; J45.909 Unspecified asthma, uncomplicated; F41.9 Anxiety disorder, unspecified; F90.9 Attention-deficit hyperactivity disorder, unspecified type; F33.0 Major depressive disorder, recurrent, mild; J45.20 Mild intermittent asthma, uncomplicated; F51.01 Primary insomnia; R19.7 Diarrhea, unspecified; E66.3 Overweight; E78.1 Pure hyperglyceridemia; R07.89 Other chest pain; Z23 Encounter for immunization | CPT/HCPCS: 90471; 90656; 99396 ==

== ENCOUNTER → 2025-07-10 08:39 | Outpatient (BNVA) | payer SELFPAY | PROVIDERS: Visit Provider Physician Assistant | DX: Z02.79 Encounter for issue of other medical certificate (principal) ==